=== PATIENT | male | born 1935 | race African-American/Black ===

== ENCOUNTER 2018-03-02 11:51 | Inpatient (IN) | payer MEDICARE ==
[2018-03-02 12:39] LABS: #Lymphocytes 0.7 thou/uL (1.20-3.40); #Monocytes 0.4 thou/uL (0.11-0.59); #Neutrophils 5.4 thou/uL (1.40-6.50); %Basophils 0.2 % (0.0-1.0); %Eosinophils 0.1 % (0.0-10.0); %Lymphocytes 10.3 % (21.0-51.0); %Monocytes 6.2 % (0.0-10.0); %Neutrophils 83.3 % (42.0-75.0); Hemoglobin 10.8 g/dL (14.0-18.0); Mean Corpuscular HGB CONC 32.8 g/dL (32.0-36.0); Mean Corpuscular Hemoglobin 31.1 pg (27.0-31.0); Mean Corpuscular Volume 94.6 fL (78.0-98.0); Platelet Count 333 thou/uL (130-400); RBC Distribution Width 12.2 % (11.5-14.5); Red Blood Cell (RBC) Count 3.49 mill/uL (4.70-6.10); White Blood Cell (WBC) Count 6.5 thou/uL (4.8-10.8)
[2018-03-02 13:03] LABS: ALT (SGPT) 22 U/L (8-55); AST (SGOT) 33 U/L (5-34); Alkaline Phosphatase 151 U/L (40-150); Anion Gap 16 mmol/L (10-20); BUN (Urea Nitrogen) 25 mg/dL (8.4-25.7); Bilirubin, Total 2.2 mg/dL (0.2-1.2); Calc. Creatinine Clearance 0 mL/min (70-130); Calcium 9.6 mg/dL (7.8-10.44); Carbon Dioxide 24 mmol/L (23-31); Chloride 96 mmol/L (98-107); Estimated GFR-MDRD 61; Globulin 4.2 g/dL (2.4-3.5); Glucose 113 mg/dL (83-110); Potassium 3.3 mmol/L (3.5-5.1); Protein, Total 8.2 g/dL (5.8-8.1); Sodium 133 mmol/L (136-145)
[2018-03-02 13:04] LABS: CKMB 1.3 ng/mL (0-6.6); Troponin I 0.018 ng/mL (< 0.028)
--- NOTE | 2018-03-02 15:00 | CT ---
HEAD CT WITHOUT CONTRAST: Date: 03/02/18 COMPARISON: None. HISTORY: Trauma, pain. TECHNIQUE: Serial axial CT imaging at 5 mm intervals from vertex through skull base without contrast. FINDINGS: The visualized paranasal sinuses and mastoid air cells are well aerated. A nonspecific small lytic lesion is noted in the right frontal calvarium measuring 1.0 cm on image 17 . There is moderate diffuse cerebral volume loss. There is periventricular hypodensity suggesting sma ll vessel disease. No intracranial hemorrhage, midline shift, or mass effect. IMPRESSION: Small vessel disease and cerebral volume loss with no intracranial hemorrhage or displaced calvarial fracture. Incidentally noted lytic lesion within the frontal calvarium on the right. Benign hemangiom a is favored. This could be best assessed via follow-up bone scan as clinically warranted. JEFF Greene. POS: LENI
--- NOTE | 2018-03-02 15:01 | CT ---
CT OF THE CERVICAL SPINE WITHOUT CONTRAST: COMPARISON: None. HISTORY: Weakness. Fall this morning with head trauma and neck pain. TECHNIQUE: Multiple contiguous axial images were obtained in a CT of the cervical spine without contrast. Sagit jojo and coronal reformats were performed. FINDINGS: There are severe degenerative changes in the cervical spine. The vertebral bodies demonstrate normal height and alignment without acute fracture or subluxation. No prevertebral soft tissue swelling is seen. The posterior facets are well aligned. Normal alignment of the skull base with the cervical spine is seen. IMPRESSION: Degenerative changes of the cervical spine without acute osseous abnormality. POS: LENI
[2018-03-02 15:32] LABS: Bilirubin Moderate (Negative); Blood, Urine Negative (Negative); Clarity TURBID (Clear); Glucose, Urine (Dipstick) Negative (Negative); Leukocyte Large (Negative); Protein, Urine (Dipstick) 30 mg/dL (Neg-Trace); Specific Gravity, Urine 1.023 (1.002-1.036)
[2018-03-02 15:35] LABS: RBC/HPF 0-3 HPF (0-3); Squamous Epithelial 0-3 HPF (0-3)
[2018-03-02 15:36] LABS: Yeast-AUWi Flag 82.4 (0-25.0)
[2018-03-02 15:49] LABS: Nitrite Unable to Interpret (Negative)
[2018-03-02 15:50] LABS: Bacteria/HPF Rare-Few HPF (None Seen); Hyaline Casts/LPF NONE SEEN LPF (0-3 Hyaline); Other Casts/LPF None Seen LPF (0-3 Hyaline)
[2018-03-02 15:51] LABS: Trichomonas/HPF 1+ HPF (None Seen); Yeast-All Forms None Seen HPF (None Seen)
[2018-03-02] MEDS ORDERED: cefTRIAXone\\ROCEPHIN 2 GM in Sodium Chloride 0.9% 100 ML IVPB SCH (17:30)
[2018-03-02] MEDS ORDERED: Ondansetron ODT 4 MG TAB SL PRN (22:16)
[2018-03-02] MEDS ORDERED: Acetaminophen 325 MG TAB PO PRN (22:16)
[2018-03-02] MEDS ORDERED: Ondansetron HCl/PF 4 MG/2 ML Vial IVP PRN (22:16)
[2018-03-02 22:18] VITALS: BMI 24.9
--- NOTE | 2018-03-03 08:48 | PDOC.EVN ---
Event Note - Event Note Event Note: Patient was admitted yesterday afternoon/evening to Hospitalist team for fall in home. ER report says admission was for UTI w/ secondary diagnosis of unable to walk. [facility] residents paged at 08:25 today once it was found that patient was [facility] patient. Patient received rocephin in ER and given regular diet.
--- NOTE | 2018-03-03 13:04 | PDOC.FPRHP ---
- History of Present Illness Chief Complaint: weakness History of Present Illness: 82 yo M with PMH of moderate dementia, HTN, BPH, cardiac arrhythmia who presents for CC being weak and unable to walk. Granddaughter came to his house where he lives alone, and he was unable to answer the door. EMS brought him to the ED where he was found to have a UTI and was given 2 g rocephin and a bolus 500 cc NS. ROS + for decreased appetite. Pt denies any others symptoms besides weakness and incontinence, for which he wears depends. Denies CP or SOB. Per clinic chart review showed wt loss of 10 kg in last 7 months. ED Course: Found to have UTI, 2 g rocephin and 500 cc NS bolus. - Allergies/Adverse Reactions Allergies Allergy/AdvReac Type Severity Reaction Status Date / Time lisinopril Allergy Swollen Verified 09/14/13 11:03 Lips No Known Drug Allergies Allergy Verified 09/13/13 21:09 - Home Medications Medication Instructions Recorded Confirmed Type Metoprolol Tartrate [Lopressor] 25 mg PO DAILY 09/13/13 03/02/18 History Tamsulosin HCl [Flomax] 0.4 mg PO DAILY 09/13/13 03/02/18 History Amlodipine [Norvasc] 10 mg PO DAILY 03/02/18 03/02/18 History Aspirin [Aspirin Chewable] 81 mg PO DAILY 03/02/18 03/02/18 History Atorvastatin Calcium [Atorvastatin 1 tab PO DAILY 03/02/18 03/02/18 History Calcium] Hydrochlorothiazide 25 mg PO DAILY 03/02/18 03/02/18 History [Hydrochlorothiazide] Memantine HCl [Memantine HCl] 10 mg PO BID 03/02/18 03/02/18 History - History PMHx: Moderate Dementia, likely vascular. MMSE 06/14 in Aug 2017 (decreased from 14 in 2017). Cardiac Arrhythmia, with potential for pacemaker in May, but there was no follow up; BPH, HTN, Nicotine dependence, TIA PSHx: Rt Inguinal Hernia repair, cataract removal FHx: Sister with bypass surgery; mother with colon cancer at 83 yrs old, DM in all of family Social: current tobacco roller, smoked in the past (unknown pack years), doesn' t drink alcohol, doesn't do drugs - Review of Systems General: reports: weight/appetite/sleep changes (decreased appetite), fatigue. denies: fever/chills ENT: denies: nasal congestion Respiratory: denies: cough, congestion, shortness of breath Cardiovascular: denies: chest pain, palpitation Gastrointestinal: denies: nausea, vomiting, diarrhea, constipation, abdominal pain Genitourinary: reports: incontinence. denies: dysuria Musculoskeletal: denies: pain Neurological: reports: weakness Psychological: denies: anxiety, depression - Vital signs BP: [129/79] HR: [78] RR: [16] Tmax: [98.6] Pox: [94]% on [RA] Wt: [76] - Physical Exam Constitutional: NAD, awake, alert and oriented HEENT: normocephalic and atraumatic, PERRLA, EOMI, no scleral icterus, other ( Poor dentition, + mod hearing loss) Neck: supple, no LAD Chest: no lesions Heart: RRR, normal S1/S2, no murmurs/rubs/gallops, pulses present, no edema Lungs: CTAB, no respiratory distress, no wheezing, no retractions Abdomen: soft, non-tender, bowel sounds present, no masses/distention Musculoskeletal: normal structure, normal tone Neurological: CN II-XII intact Skin: good turgor, capillary refill <2 seconds, no jaundice Heme/Lymphatic: no purpura, no petechia Psychiatric: normal mood and affect FMR H&P: Results - Labs Result Diagrams: 03/04/18 04:28 03/04/18 04:28 Lab results: WBC 6.5 thou/uL (4.8-10.8) 03/02/18 12:33 Hgb 10.8 g/dL (14.0-18.0) L 03/02/18 12:33 Hct 33.0 % (42.0-52.0) L 03/02/18 12:33 MCV 94.6 fL (78.0-98.0) 03/02/18 12:33 Plt Count 333 thou/uL (130-400) 03/02/18 12:33 Neutrophils % 83.3 % (42.0-75.0) H 03/02/18 12:33 Sodium 133 mmol/L (136-145) L 03/02/18 12:33 Potassium 3.3 mmol/L (3.5-5.1) L 03/02/18 12:33 Chloride 96 mmol/L (98-107) L 03/02/18 12:33 Carbon Dioxide 24 mmol/L (23-31) 03/02/18 12:33 BUN 25 mg/dL (8.4-25.7) 03/02/18 12:33 Creatinine 1.35 mg/dL (0.6-1.3) H 03/02/18 12:33 Glucose 113 mg/dL (83-110) H 03/02/18 12:33 Calcium 9.6 mg/dL (7.8-10.44) 03/02/18 12:33 Total Bilirubin 2.2 mg/dL (0.2-1.2) H 03/02/18 12:33 AST 33 U/L (5-34) 03/02/18 12:33 ALT 22 U/L (8-55) 03/02/18 12:33 Alkaline Phosphatase 151 U/L (40-150) H 03/02/18 12:33 CK-MB (CK-2) 1.3 ng/mL (0-6.6) 03/02/18 12:33 Serum Total Protein 8.2 g/dL (5.8-8.1) H 03/02/18 12:33 Albumin 4.0 g/dL (3.4-4.8) 03/02/18 12:33 Urine Ketones Trace mg/dL (Negative) H 03/02/18 14:45 Urine Blood Negative (Negative) 03/02/18 14:45 Urine Nitrite Unable to Interpret (Negative) 03/02/18 14:45 Ur Leukocyte Esterase Large (Negative) H 03/02/18 14:45 Urine RBC 0-3 HPF (0-3) 03/02/18 14:45 Urine WBC Greater Than 50-TNTC HPF (0-3) H 03/02/18 14:45 Ur Squamous Epith Cells 0-3 HPF (0-3) 03/02/18 14:45 Urine Bacteria Rare-Few HPF (None Seen) 03/02/18 14:45 FMR H&P: A/P - Problem List (1) Physical deconditioning Current Visit: Yes Status: Acute Code(s): R53.81 - OTHER MALAISE (2) Complicated UTI (urinary tract infection) Current Visit: Yes Status: Acute Code(s): N39.0 - URINARY TRACT INFECTION, SITE NOT SPECIFIED (3) BPH (benign prostatic hyperplasia) Current Visit: Yes Status: Chronic Code(s): N40.0 - BENIGN PROSTATIC HYPERPLASIA WITHOUT LOWER URINRY TRACT SYMP (4) Vascular dementia Current Visit: Yes Status: Chronic Code(s): F01.50 - VASCULAR DEMENTIA WITHOUT BEHAVIORAL DISTURBANCE (5) Nicotine dependence Current Visit: Yes Status: Chronic Code(s): F17.200 - NICOTINE DEPENDENCE, UNSPECIFIED, UNCOMPLICATED (6) History of cardiac arrhythmia Current Visit: No Status: Chronic Code(s): Z86.79 - PERSONAL HISTORY OF OTHER DISEASES OF THE CIRCULATORY SYSTEM (7) HTN (hypertension) Current Visit: Yes Status: Chronic Code(s): I10 - ESSENTIAL (PRIMARY) HYPERTENSION (8) HLD (hyperlipidemia) Current Visit: Yes Status: Chronic Code(s): E78.5 - HYPERLIPIDEMIA, UNSPECIFIED - Plan Complicated UTI -UA showed UTI and trichomonas. Pt Received 2 g Rocephin and 500 cc NS in ED. -Blood and cultures pending. Both collected after first dose of antibiotics, so may give false negative result. -Patients vitals have been stable on admission: no tachypnea, no fever, no tachycardia, WBC wnl (left shift but no bands), so does not meet Sepsis criteria at this time. -Pending lactic acid -AM CBC and BMP Deconditioning, likely 2/2 to UTI -Prior to this time patient was able to ambulate on his own and perform own ADLs (with nursing visits once daily), without even a walker. This acute change is likely 2/2 to the UTI -PT consult -OT consult -Case management consulted for placement, likely rehab Possible Fall -CT Head was negative -CT c-spine: no displaced calvarial fracture or intracranial hemorrhage Normocytic Anemia -Hgb 10.8 Moderate Dementia, likely vascular -06/14 on MMSE in August. HTN -restart home HCTZ, amlodipine, and metoprolol Suspected MANUEL -Cr 1.35, previous baseline ~1.05 -Calculate FeNa with tomorrow AM labs Urine Na and Cr along with BMP -Urine protein high at 30 BPH -continue tamsulosin Cardiac arrhythmia, hx of needing a pacemaker -stable currently -CKMB and Trop negative Nicotine dependence -Currently every day nicotine user (dip). Past hx of smoking, unknown pack years. -Offer nicotine patches and nicotine cessation education Hyperbilirubinemia -2.2 today -uncertain of cause at this time Hypokalemia -K of 3.3, ordered 1x dose of 40 meq K and will repeat BMP in AM Hyponatremia -Na 133 -Ordered Morning Urine osm and serum osm to qualify type of hyponatremia Trichomaniasis -UA showed trich; treated with flagyl Code status: Full Code MPOA: sister, Lachelle López FMR H&P: Upper Level - Pertinent history 82M with a PMH of vascular dementia, HTN, and BPH who presents to ER after likely a fall at home. Patient unable to answer door when family came to visit yesterday. EMS called and patient transported to ER as he was unable to walk. Normally, patient lives at home by himself and is able to perform ADLs without assistance. Last seen in OP clinic in August and was at his baseline at that time. Patient is pleasantly demented and has no complaints during time of this examination. He is accompanied by sister who denies patient having any complaints. Patient and sister deny any FND, numbness/tingling, headaches, changes in vision, palpitations, dysuria. ED: 2G rocephin, 500cc NS bolus - Pertinent findings Vitals: 129/79 mmHg 78 bpm 16 breaths/m 94% on RA 98.6F Gen: A&O x 2 HEENT: NC/AT; MMM CV: RRR, no murmurs Pulm: CTA-B Abd: normal bowel sounds; non TTP; no distention Extremities: no cyanosis; strength 5/5 all four extremities Psych: affect congruent with stated mood Na: 133 K: 3.3 UA: + for trichomoniasis and UTI H.8 MCV: 94.6 Total bili: 2.2 trop: .018 - Plan Date/Time: 03/03/18 1259 1. Complicated UTI: UA positive for UTI s/p 2G of Rocephin in ED. We will continue treatment with Rocephin 1G daily until cultures result. Patient does not meet SIRS criteria on admission. We will add lactic acid to ED labs. 2. Trichomaniasis: UA positive for trichomoniasis. Will treat with one time dose of 2G of flagyl. Trich in males associated with other urologic infections including prostatitis, no s/s of other infections at this time. 3. Deconditioning/Weakness: acute change in functional status. He is unable to ambulate since calling EMS. No signs of neurologic insult. No FND's or change in mental status. Will consult PT/OT for evaluation and recommendations. We anticipate at least a short term rehabilitation stay. 4. Suspected MANUEL: baseline Cr of 1.0, bumped to 1.35 on admission. FENa pending. LR at 125cc/hr. Monitor I/O's 5. Hyperbilirubinemia: elevated total bilirubin at 2.2. Normal AST/ALT/Alk Phos. Will get direct and indirect bili. If still elevated upon recheck, will need RUQ US. No RUQ abdominal pain or n/v at this time. 6. Hypokalemia: replete with 40mEq of KCl one time. Follow with AM labs 7. Hyponatremia: serum osms and urine studies pending. Asymptomatic at this time. 8. Normocytic Anemia: Hg of 10.8 with MCV of 94.6. This Hg is unchanged from 2014, per review of records. Denies CP, SOB, PIMENTEL. 9. Dementia, likely vascular: MMSE done in August was 06/14 showing a worsening in cognition. No gross behavioral changes. Being managed by outpatient primary care provider. Namenda dose was recently increased, will continue during this hospitalization. 10. HTN: Continue HCTZ, amlodipine, metoprolol. BP at goal at this time. 11. BPH: continue home dose of tamsulosin. No s/s of urinary retention at this time I, Dudley Duran, have evaluated this patient and agree with findings/plan as outlined by internet site designer resident. Pertinent changes/additions are listed here. Attending Addendum - Attending Addendum Date/Time: 03/04/18 3397 I personally evaluated the patient and discussed the management with Dr. Elmo Butelr on 03/03/18. I agree with the History, Examination, Assessment and Plan documented above with any addition or exceptions noted below- 82M with a PMH of vascular dementia , HTN, and BPH who presents to ER after likely a fall at home. Patient unable to answer door when family came to visit yesterday. EMS called and patient transported to ER as he was unable to walk. Normally, patient lives at home by himself and is able to perform ADLs without assistance. Last seen in OP clinic in August and was at his baseline at that time. Patient denies any complaints at this time and is asking about going home. Denies any abdominal pain, N/V. PMH /PSH/Meds/All reviewed and agree with resident's documentation. Afebrile VSS. Exam repeated by me and agree with resident's findings. A/p: 1) UTI - Continue rocephin; await urine culture. Given 1 dose of flagyl for trich. 2) Weakness/ deconditioning- PT evaluation.
[2018-03-03] MEDS ORDERED: Calcium Carbonate 500 MG ChewTAB PO PRN (13:49)
[2018-03-03] MEDS ORDERED: metroNIDAZOLE 500 MG TAB PO SCH (14:00)
[2018-03-03] MEDS ORDERED: Potassium Chloride 20 MEQ TAB PO SCH (14:15)
[2018-03-03] MEDS: Lactated Ringer's 1,000 ML IV SCH (15:39)
[2018-03-03] MEDS: Nicotine 14 MG PATCH TD SCH (15:40)
[2018-03-03] MEDS: cefTRIAXone\\ROCEPHIN 1 GM in Sodium Chloride 0.9% 100 ML IVPB SCH (15:52)
[2018-03-03 16:58] LABS: Lactic Acid 2.2 mmol/L (0.5-2.2)
[2018-03-04] MEDS: Lactated Ringer's 1,000 ML IV SCH ×4 (01:14→20:26)
--- NOTE | 2018-03-04 05:23 | PDOC.FM ---
- Subjective Subjective: Pt did well overnight. Eating and drinking well. Refused cath, unable to collect urine for urine studies as of yet because of pt's incontinence. Ambulated with nursing assistance last night, pt was able to balance well and stand on his own for quite some time. - Objective Vital Signs & Weight: Vital Signs (12 hours) Temp Pulse Resp BP Pulse Ox 03/03/18 20:00 98.9 F 75 18 121/74 94 L Weight Weight 76.657 kg I&O: 03/02/18 03/03/18 03/04/18 06:59 06:59 06:59 Intake Total 360 1875 Balance 360 1875 Result Diagrams: 03/04/18 04:28 03/04/18 04:28 <Kala Butler - Last Filed: 03/04/18 08:21> - Objective Vital Signs & Weight: Vital Signs (12 hours) Temp Pulse Resp BP Pulse Ox 03/04/18 07:34 98.0 F 69 18 161/79 H 98 03/04/18 07:21 98.9 F 75 18 Weight Weight 76.657 kg I&O: 03/03/18 03/04/18 03/05/18 06:59 06:59 06:59 Intake Total 360 1875 Output Total 245 Balance 360 1875 -245 Result Diagrams: 03/04/18 04:28 03/04/18 04:28 <Rona Ward - Last Filed: 03/04/18 13:16> Phys Exam - Physical Examination Constitutional: NAD HEENT: moist MMs Neck: no nodes Respiratory: no wheezing, clear to auscultation bilateral Cardiovascular: RRR, no significant murmur Gastrointestinal: soft, non-tender, no distention Musculoskeletal: no edema, pulses present Neurological: moves all 4 limbs Psychiatric: normal affect Skin: normal turgor, cap refill <2 seconds <Kala Butler - Last Filed: 03/04/18 08:21> Dx/Plan (1) Physical deconditioning Code(s): R53.81 - OTHER MALAISE Status: Acute (2) Complicated UTI (urinary tract infection) Code(s): N39.0 - URINARY TRACT INFECTION, SITE NOT SPECIFIED Status: Acute (3) BPH (benign prostatic hyperplasia) Code(s): N40.0 - BENIGN PROSTATIC HYPERPLASIA WITHOUT LOWER URINRY TRACT SYMP Status: Chronic (4) Vascular dementia Code(s): F01.50 - VASCULAR DEMENTIA WITHOUT BEHAVIORAL DISTURBANCE Status: Chronic (5) Nicotine dependence Code(s): F17.200 - NICOTINE DEPENDENCE, UNSPECIFIED, UNCOMPLICATED Status: Chronic (6) History of cardiac arrhythmia Code(s): Z86.79 - PERSONAL HISTORY OF OTHER DISEASES OF THE CIRCULATORY SYSTEM Status: Chronic (7) HTN (hypertension) Code(s): I10 - ESSENTIAL (PRIMARY) HYPERTENSION Status: Chronic (8) HLD (hyperlipidemia) Code(s): E78.5 - HYPERLIPIDEMIA, UNSPECIFIED Status: Chronic - Plan Plan: 1. Complicated UTI: UA positive for UTI s/p 2G of Rocephin in ED. We will continue treatment with Rocephin 1G daily until cultures result. Patient does not meet SIRS criteria on admission. LA 2.2 which is reassuring. Blood and urine cx pending. 2. Trichomaniasis: UA positive for trichomoniasis. Will treat with one time dose of 2G of flagyl. Trich in males associated with other urologic infections including prostatitis, no s/s of other infections at this time. Added GC/Chlam, RPR, and HIV testing today. 3. Deconditioning/Weakness: acute change in functional status. He is unable to ambulate since calling EMS. No signs of neurologic insult. No FND's or change in mental status. Will consult PT/OT for evaluation and recommendations. We anticipate at least a short term rehabilitation stay. Improved today: Was able to stand on his own last night for quite some time last night. 4. Suspected MANUEL: baseline Cr of 1.0, bumped to 1.35 on admission. FENa pending. LR at 125cc/hr. Monitor I/O's. GFR improved 03/04 to >90, BUN/Cr improved to 20/.84. 5. Hyperbilirubinemia: elevated total bilirubin at 2.2. Normal AST/ALT/Alk Phos. Will get direct and indirect bili. If still elevated upon recheck, will need RUQ US. No RUQ abdominal pain or n/v at this time. TBili improved drastically to 1.4, will continue to monitor. 6. Hypokalemia: repleted 03/03 with 40mEq of KCl one time. Today 03/04 KCl shows no improvement. Repeat 40 mEq today and add Mag, repeate BMP. 7. Hyponatremia: serum osms and urine studies pending. Asymptomatic at this time. Unable to catch urine on him this morning and pt refused straight cath, still pending urine studies. 8. Normocytic Anemia: Hg of 10.8 with MCV of 94.6. This Hg is unchanged from 2014, per review of records. Denies CP, SOB, PIMENTEL. 9. Dementia, likely vascular: MMSE done in August was 06/14 showing a worsening in cognition. No gross behavioral changes. Being managed by outpatient primary care provider. Namenda dose was recently increased, will continue during this hospitalization. 10. HTN: Continue HCTZ, amlodipine, metoprolol. BP 161/79 this morning. Will continue to monitor and adjust as needed. 11. BPH: continue home dose of tamsulosin. No s/s of urinary retention at this time 12. Hx Cardiac arrhythmia. EKG 03/02 showed RBBB, sinus rhythm. <Kala Butler - Last Filed: 03/04/18 08:21> (1) Physical deconditioning Code(s): R53.81 - OTHER MALAISE Status: Acute (2) Complicated UTI (urinary tract infection) Code(s): N39.0 - URINARY TRACT INFECTION, SITE NOT SPECIFIED Status: Acute (3) BPH (benign prostatic hyperplasia) Code(s): N40.0 - BENIGN PROSTATIC HYPERPLASIA WITHOUT LOWER URINRY TRACT SYMP Status: Chronic (4) Vascular dementia Code(s): F01.50 - VASCULAR DEMENTIA WITHOUT BEHAVIORAL DISTURBANCE Status: Chronic (5) Nicotine dependence Code(s): F17.200 - NICOTINE DEPENDENCE, UNSPECIFIED, UNCOMPLICATED Status: Chronic (6) History of cardiac arrhythmia Code(s): Z86.79 - PERSONAL HISTORY OF OTHER DISEASES OF THE CIRCULATORY SYSTEM Status: Chronic (7) HTN (hypertension) Code(s): I10 - ESSENTIAL (PRIMARY) HYPERTENSION Status: Chronic (8) HLD (hyperlipidemia) Code(s): E78.5 - HYPERLIPIDEMIA, UNSPECIFIED Status: Chronic <Rona Ward - Last Filed: 03/04/18 13:16> Attending Addendum - Attending Addendum Date/Time: 03/04/18 1313 I personally evaluated the patient and discussed the management with Dr. Coppola I agree with the History, Examination, Assessment and Plan documented above with any addition or exceptions noted below- Patient denies any complaints. Ambulated with nursing yesterday. Afebrile VSS. A/P: 1) UTI- continue rocephin; awaiting culture. 2) Deconditioning - appears better; awaiting rehab screen. 3) Dementia- stable; continue home meds. <Rona Ward - Last Filed: 03/04/18 13:16>
[2018-03-04 05:29] LABS: #Basophils 0.1 thou/uL (0.0-0.2); #Lymphocytes 0.9 thou/uL (1.20-3.40); #Monocytes 0.5 thou/uL (0.11-0.59); %Basophils 1.2 % (0.0-1.0); %Eosinophils 0.7 % (0.0-10.0); %Lymphocytes 14.2 % (21.0-51.0); %Monocytes 7.9 % (0.0-10.0); Hemoglobin 10.5 g/dL (14.0-18.0); Mean Corpuscular HGB CONC 34.5 g/dL (32.0-36.0); Mean Corpuscular Hemoglobin 32.6 pg (27.0-31.0); Mean Corpuscular Volume 94.5 fL (78.0-98.0); Mean Platelet Volume 5.9 fL (7.4-10.4); Platelet Count 308 thou/uL (130-400); RBC Distribution Width 12.3 % (11.5-14.5); Red Blood Cell (RBC) Count 3.21 mill/uL (4.70-6.10); White Blood Cell (WBC) Count 6.5 thou/uL (4.8-10.8)
[2018-03-04 05:51] LABS: Anion Gap 12 mmol/L (10-20); BUN (Urea Nitrogen) 20 mg/dL (8.4-25.7); Calc. Creatinine Clearance 71 mL/min (70-130); Calcium 8.9 mg/dL (7.8-10.44); Carbon Dioxide 24 mmol/L (23-31); Chloride 101 mmol/L (98-107); Estimated GFR-MDRD Greater than 90; Glucose 88 mg/dL (83-110); Potassium 3.3 mmol/L (3.5-5.1); Sodium 134 mmol/L (136-145)
[2018-03-04] MEDS ORDERED: Potassium Chloride 20 MEQ TAB PO SCH (07:15)
[2018-03-04 07:26] LABS: Bilirubin, Direct 0.8 mg/dL (0.1-0.3); Bilirubin, Total 1.4 mg/dL (0.2-1.2)
[2018-03-04] MEDS: Metoprolol Tartrate 25 MG TAB PO SCH (08:37)
[2018-03-04] MEDS: Tamsulosin HCl 0.4 MG CAP PO SCH (08:40)
[2018-03-04] MEDS: Hydrochlorothiazide 25 MG TAB PO SCH (08:40)
[2018-03-04] MEDS: Amlodipine 10 MG TAB PO SCH (08:41)
[2018-03-04] MEDS: Atorvastatin Calcium 40 MG TAB PO SCH (08:41)
[2018-03-04 09:39] LABS: HIV (1/2) Antibody/Antigen Non-Reactive (NonReactive); HIV 1/2 INDEX 0.12 S/CO (<1.00)
[2018-03-04 11:27] LABS: Osmolality, Urine 681 mOsm/kg (300-900)
[2018-03-04 11:30] LABS: Sodium, Urine 112 mmol/L (Not Available)
[2018-03-04] MEDS: cefTRIAXone\\ROCEPHIN 1 GM in Sodium Chloride 0.9% 100 ML IVPB SCH (14:43)
[2018-03-04] MEDS: Nicotine 14 MG PATCH TD SCH (14:44)
[2018-03-04 14:47] LABS: Syphilis Antibody Nonreactive (Nonreactive); Syphilis Antibody Index 0.07 S/CO (<1.00 Non-Reactive)
[2018-03-05 02:07] LABS: Chlamydia by PCR Not Detected (NotDetected); GC by PCR Not Detected (NotDetected)
[2018-03-05] MEDS: Lactated Ringer's 1,000 ML IV SCH ×4 (02:52→18:42)
[2018-03-05 05:30] LABS: #Eosinphils 0.1 thou/uL (0.0-0.7); #Monocytes 0.4 thou/uL (0.11-0.59); #Neutrophils 4.6 thou/uL (1.40-6.50); %Basophils 0.3 % (0.0-1.0); %Eosinophils 0.9 % (0.0-10.0); %Lymphocytes 16.3 % (21.0-51.0); %Monocytes 6.1 % (0.0-10.0); %Neutrophils 76.4 % (42.0-75.0); Hemoglobin 9.5 g/dL (14.0-18.0); Mean Corpuscular HGB CONC 33.8 g/dL (32.0-36.0); Mean Corpuscular Hemoglobin 31.6 pg (27.0-31.0); Mean Corpuscular Volume 93.5 fL (78.0-98.0); Mean Platelet Volume 5.8 fL (7.4-10.4); Platelet Count 268 thou/uL (130-400); RBC Distribution Width 12.3 % (11.5-14.5)
[2018-03-05 05:52] LABS: Anion Gap 9 mmol/L (10-20); BUN (Urea Nitrogen) 19 mg/dL (8.4-25.7); Calc. Creatinine Clearance 86 mL/min (70-130); Calcium 8.4 mg/dL (7.8-10.44); Carbon Dioxide 24 mmol/L (23-31); Chloride 101 mmol/L (98-107); Estimated GFR-MDRD Greater than 90; Glucose 107 mg/dL (83-110); Potassium 3.3 mmol/L (3.5-5.1); Sodium 131 mmol/L (136-145)
--- NOTE | 2018-03-05 06:05 | PDOC.FM ---
- Subjective Subjective: 82 yo M, did well overnight. No complaints. VSS. - Objective Vital Signs & Weight: Vital Signs (12 hours) Temp Pulse Resp BP Pulse Ox 03/04/18 20:00 98.9 F 88 18 99 03/04/18 19:36 98.9 F 88 18 106/65 99 Weight Weight 76.657 kg I&O: 03/03/18 03/04/18 03/05/18 06:59 06:59 06:59 Intake Total 360 1875 4740 Output Total 446 Balance 360 1875 4294 Result Diagrams: 03/05/18 04:06 03/05/18 04:06 <CarrieKala - Last Filed: 03/05/18 09:04> - Objective Vital Signs & Weight: Vital Signs (12 hours) Pulse BP 03/05/18 10:09 71 151/78 H Weight Weight 76.657 kg I&O: 03/04/18 03/05/18 03/06/18 06:59 06:59 06:59 Intake Total 1875 4740 2100 Output Total 446 Balance 1875 4294 2100 Result Diagrams: 03/05/18 04:06 03/05/18 04:06 <Rona Ward - Last Filed: 03/05/18 22:05> Phys Exam - Physical Examination Constitutional: NAD Respiratory: no wheezing, no rales, no rhonchi, clear to auscultation bilateral Cardiovascular: RRR, no significant murmur, no rub Gastrointestinal: soft, non-tender, no distention Musculoskeletal: no edema, pulses present Psychiatric: normal affect <Kala Butler - Last Filed: 03/05/18 09:04> Dx/Plan (1) Physical deconditioning Code(s): R53.81 - OTHER MALAISE Status: Acute (2) Complicated UTI (urinary tract infection) Code(s): N39.0 - URINARY TRACT INFECTION, SITE NOT SPECIFIED Status: Acute (3) BPH (benign prostatic hyperplasia) Code(s): N40.0 - BENIGN PROSTATIC HYPERPLASIA WITHOUT LOWER URINRY TRACT SYMP Status: Chronic (4) Vascular dementia Code(s): F01.50 - VASCULAR DEMENTIA WITHOUT BEHAVIORAL DISTURBANCE Status: Chronic (5) Nicotine dependence Code(s): F17.200 - NICOTINE DEPENDENCE, UNSPECIFIED, UNCOMPLICATED Status: Chronic (6) History of cardiac arrhythmia Code(s): Z86.79 - PERSONAL HISTORY OF OTHER DISEASES OF THE CIRCULATORY SYSTEM Status: Chronic (7) HTN (hypertension) Code(s): I10 - ESSENTIAL (PRIMARY) HYPERTENSION Status: Chronic (8) HLD (hyperlipidemia) Code(s): E78.5 - HYPERLIPIDEMIA, UNSPECIFIED Status: Chronic - Plan Plan: Plan: 1. Complicated UTI: UA positive for UTI s/p 2G of Rocephin in ED. We will continue treatment with Rocephin 1G daily until cultures result. Patient does not meet SIRS criteria on admission. LA 2.2 which is reassuring. Blood (NGTD) and urine cx pending. 2. Trichomaniasis: UA positive for trichomoniasis. Will treat with one time dose of 2G of flagyl. Trich in males associated with other urologic infections including prostatitis, no s/s of other infections at this time. GC/Chlam, RPR, and HIV all negative. 3. Deconditioning/Weakness: acute change in functional status. He is unable to ambulate since calling EMS. No signs of neurologic insult. No FND's or change in mental status. Will consult PT/OT for evaluation and recommendations. We anticipate at least a short term rehabilitation stay. Improved. Was able to stand on his own. [facility] referral for rehab. 4. Suspected MANUEL, resolved: baseline Cr of 1.0, bumped to 1.35 on admission. FENa 0.7%, prerenal etiology. LR at 125cc/hr. Monitor I/O's. GFR improved 03/04 to >90, BUN/Cr improved to 19/.69 and stable today. 5. Hyperbilirubinemia, resolved: elevated total bilirubin at 2.2. Normal AST/ALT /Alk Phos. Will get direct and indirect bili. If still elevated upon recheck, will need RUQ US. No RUQ abdominal pain or n/v at this time. TBili improved. 6. Hypokalemia: repleted 03/03 with 40mEq of KCl one time. Mag wnl. K: 3.3 today. Will receive 40 mEq today 03/05. 7. Hyponatremia: Worsened today to 131. Asymptomatic at this time. 8. Normocytic Anemia: Hg 9.5. This Hg is unchanged from 2014, per review of records. Denies CP, SOB, PIMENTEL. 9. Dementia, likely vascular: MMSE done in August was 06/14 showing a worsening in cognition. No gross behavioral changes. Being managed by outpatient primary care provider. Namenda dose was recently increased, will continue during this hospitalization. 10. HTN: Continue HCTZ, amlodipine, metoprolol. Will continue to monitor and adjust as needed. 11. BPH: continue home dose of tamsulosin. No s/s of urinary retention at this time 12. Hx Cardiac arrhythmia. EKG 03/02 showed RBBB, sinus rhythm. Code status: Full code <Kala Butler - Last Filed: 03/05/18 09:04> (1) Physical deconditioning Code(s): R53.81 - OTHER MALAISE Status: Acute (2) Complicated UTI (urinary tract infection) Code(s): N39.0 - URINARY TRACT INFECTION, SITE NOT SPECIFIED Status: Acute (3) BPH (benign prostatic hyperplasia) Code(s): N40.0 - BENIGN PROSTATIC HYPERPLASIA WITHOUT LOWER URINRY TRACT SYMP Status: Chronic (4) Vascular dementia Code(s): F01.50 - VASCULAR DEMENTIA WITHOUT BEHAVIORAL DISTURBANCE Status: Chronic (5) Nicotine dependence Code(s): F17.200 - NICOTINE DEPENDENCE, UNSPECIFIED, UNCOMPLICATED Status: Chronic (6) History of cardiac arrhythmia Code(s): Z86.79 - PERSONAL HISTORY OF OTHER DISEASES OF THE CIRCULATORY SYSTEM Status: Chronic (7) HTN (hypertension) Code(s): I10 - ESSENTIAL (PRIMARY) HYPERTENSION Status: Chronic (8) HLD (hyperlipidemia) Code(s): E78.5 - HYPERLIPIDEMIA, UNSPECIFIED Status: Chronic <Rona Ward - Last Filed: 03/05/18 22:05> Attending Addendum - Attending Addendum Date/Time: 03/05/18 5703 I personally evaluated the patient and discussed the management with Dr. Elmo Butler I agree with the History, Examination, Assessment and Plan documented above with any addition or exceptions noted below- Patient sitting up in chair. More alert. Afebrile VSS. A/P: 1) UTI- improved; continue abx. Ready for discharge awaiting approval for rehab. 2) Anemia- stable. 3) Hypokalemia- continue replacement. <Rona Ward - Last Filed: 03/05/18 22:05>
[2018-03-05] MEDS ORDERED: Potassium Chloride 20 MEQ TAB PO SCH (09:15)
[2018-03-05] MEDS: Amlodipine 10 MG TAB PO SCH (10:09)
[2018-03-05] MEDS: Metoprolol Tartrate 25 MG TAB PO SCH (10:10)
[2018-03-05] MEDS: Hydrochlorothiazide 25 MG TAB PO SCH (10:10)
[2018-03-05] MEDS: Atorvastatin Calcium 40 MG TAB PO SCH (10:10)
[2018-03-05] MEDS: Tamsulosin HCl 0.4 MG CAP PO SCH (10:10)
[2018-03-05] MEDS: Nicotine 14 MG PATCH TD SCH (14:15)
[2018-03-05] MEDS: cefTRIAXone\\ROCEPHIN 1 GM in Sodium Chloride 0.9% 100 ML IVPB SCH (14:17)
[2018-03-06] MEDS: Lactated Ringer's 1,000 ML IV SCH ×2 (03:24→06:24)
[2018-03-06 05:10] LABS: Anion Gap 15 mmol/L (10-20); BUN (Urea Nitrogen) 12 mg/dL (8.4-25.7); Calc. Creatinine Clearance 84 mL/min (70-130); Calcium 9.1 mg/dL (7.8-10.44); Carbon Dioxide 21 mmol/L (23-31); Chloride 99 mmol/L (98-107); Estimated GFR-MDRD Greater than 90; Glucose 92 mg/dL (83-110); Potassium 4.3 mmol/L (3.5-5.1); Sodium 131 mmol/L (136-145)
--- NOTE | 2018-03-06 05:56 | PDOC.FM ---
- Subjective Subjective: 82 yo M here for UTI and weakness. No complaints today. Awaiting placement. - Objective Vital Signs & Weight: Vital Signs (12 hours) Temp Pulse Resp BP Pulse Ox 03/05/18 20:00 98.4 F 74 18 138/71 96 Weight Weight 76.657 kg I&O: 03/04/18 03/05/18 03/06/18 06:59 06:59 06:59 Intake Total 1875 4740 2100 Output Total 446 Balance 1875 4294 2100 Result Diagrams: 03/06/18 04:45 03/06/18 04:45 <Kala Butler - Last Filed: 03/06/18 08:38> - Objective Vital Signs & Weight: Vital Signs (12 hours) Temp Pulse Resp BP BP Pulse Ox 03/06/18 09:13 102 H 129/79 03/06/18 07:37 98.0 F 102 H 18 129/79 98 Weight Weight 76.657 kg I&O: 03/05/18 03/06/18 03/07/18 06:59 06:59 06:59 Intake Total 4740 2100 Output Total 446 Balance 4294 2100 Result Diagrams: 03/06/18 04:45 03/06/18 04:45 <Rona Ward - Last Filed: 03/06/18 11:12> Phys Exam - Physical Examination Constitutional: NAD Respiratory: no wheezing, no rales, no rhonchi, clear to auscultation bilateral Cardiovascular: RRR, no significant murmur, no rub Gastrointestinal: soft, non-tender, no distention Musculoskeletal: no edema, pulses present Psychiatric: normal affect, A&O x 3 Skin: cap refill <2 seconds <Kala Butler - Last Filed: 03/06/18 08:38> Dx/Plan (1) Physical deconditioning Code(s): R53.81 - OTHER MALAISE Status: Acute (2) Complicated UTI (urinary tract infection) Code(s): N39.0 - URINARY TRACT INFECTION, SITE NOT SPECIFIED Status: Acute (3) BPH (benign prostatic hyperplasia) Code(s): N40.0 - BENIGN PROSTATIC HYPERPLASIA WITHOUT LOWER URINRY TRACT SYMP Status: Chronic (4) Vascular dementia Code(s): F01.50 - VASCULAR DEMENTIA WITHOUT BEHAVIORAL DISTURBANCE Status: Chronic (5) Nicotine dependence Code(s): F17.200 - NICOTINE DEPENDENCE, UNSPECIFIED, UNCOMPLICATED Status: Chronic (6) History of cardiac arrhythmia Code(s): Z86.79 - PERSONAL HISTORY OF OTHER DISEASES OF THE CIRCULATORY SYSTEM Status: Chronic (7) HTN (hypertension) Code(s): I10 - ESSENTIAL (PRIMARY) HYPERTENSION Status: Chronic (8) HLD (hyperlipidemia) Code(s): E78.5 - HYPERLIPIDEMIA, UNSPECIFIED Status: Chronic - Plan Plan: Plan: 1. Complicated UTI: UA positive for UTI s/p 2G of Rocephin in ED. We will continue treatment with Rocephin 1G daily until cultures result. Patient does not meet SIRS criteria on admission. LA 2.2 which is reassuring. Blood (NGTD) pending and urine cx showed mixed skin elisabeth. Plan to transition to oral ceftriaxone outpt. 2. Trichomaniasis: UA positive for trichomoniasis. Treated with one time dose of 2G of flagyl. Trich in males associated with other urologic infections including prostatitis, no s/s of other infections at this time. GC/Chlam, RPR, and HIV all negative. 3. Deconditioning/Weakness: acute change in functional status. He is unable to ambulate since calling EMS. No signs of neurologic insult. No FND's or change in mental status. Will consult PT/OT for evaluation and recommendations. We anticipate at least a short term rehabilitation stay. Improved. Was able to stand on his own. [facility] referral for rehab. Awaiting pre-auth for health insurance from [facility]. Family notified and updated yesterday 03/05. 4. Suspected MANUEL, resolved: baseline Cr of 1.0, bumped to 1.35 on admission. FENa 0.7%, prerenal etiology. LR at 125cc/hr. Monitor I/O's. GFR improved 03/04 to >90, BUN/Cr improved to 19/.69. Stable. 5. Hyperbilirubinemia, resolved: elevated total bilirubin at 2.2. Normal AST/ALT /Alk Phos. Will get direct and indirect bili. If still elevated upon recheck, will need RUQ US. No RUQ abdominal pain or n/v at this time. TBili improved. 6. Hypokalemia, resolved: repleted 03/03 with 40mEq of KCl one time. Mag wnl. K: 3.3 today. Will receive 40 mEq 03/05. K: 4.3. 7. Hyponatremia: Na 131. Asymptomatic at this time. 8. Normocytic Anemia: Hg 9.5. This Hg is unchanged from 2014, per review of records. Denies CP, SOB, PIMENTEL. 9. Dementia, likely vascular: MMSE done in August was 06/14 showing a worsening in cognition. No gross behavioral changes. Being managed by outpatient primary care provider. Namenda dose was recently increased, will continue during this hospitalization. 10. HTN: Continue HCTZ, amlodipine, metoprolol. Will continue to monitor and adjust as needed. 11. BPH: continue home dose of tamsulosin. No s/s of urinary retention at this time 12. Hx Cardiac arrhythmia. EKG 03/02 showed RBBB, sinus rhythm. Code status: Full code F/up outpatient with PCP Joaquín at [facility] in 1-2 weeks. <Kala Butler - Last Filed: 03/06/18 08:38> (1) Physical deconditioning Code(s): R53.81 - OTHER MALAISE Status: Acute (2) Complicated UTI (urinary tract infection) Code(s): N39.0 - URINARY TRACT INFECTION, SITE NOT SPECIFIED Status: Acute (3) BPH (benign prostatic hyperplasia) Code(s): N40.0 - BENIGN PROSTATIC HYPERPLASIA WITHOUT LOWER URINRY TRACT SYMP Status: Chronic (4) Vascular dementia Code(s): F01.50 - VASCULAR DEMENTIA WITHOUT BEHAVIORAL DISTURBANCE Status: Chronic (5) Nicotine dependence Code(s): F17.200 - NICOTINE DEPENDENCE, UNSPECIFIED, UNCOMPLICATED Status: Chronic (6) History of cardiac arrhythmia Code(s): Z86.79 - PERSONAL HISTORY OF OTHER DISEASES OF THE CIRCULATORY SYSTEM Status: Chronic (7) HTN (hypertension) Code(s): I10 - ESSENTIAL (PRIMARY) HYPERTENSION Status: Chronic (8) HLD (hyperlipidemia) Code(s): E78.5 - HYPERLIPIDEMIA, UNSPECIFIED Status: Chronic <Rona Ward - Last Filed: 03/06/18 11:12> Attending Addendum - Attending Addendum Date/Time: 03/06/18 1110 I personally evaluated the patient and discussed the management with Dr. Elmo Butler I agree with the History, Examination, Assessment and Plan documented above with any addition or exceptions noted below- Patient without complaints. Tolerating diet. Afebrile VSS. A/P: 1) UTI- improved; on po abx. 2) Deconditioning- awaiting insurance approval for rehab. If not approved, plan for SNU/swing bed. <Rona Ward - Last Filed: 03/06/18 11:12>
[2018-03-06 06:09] LABS: #Eosinphils 0.1 thou/uL (0.0-0.7); #Lymphocytes 1.1 thou/uL (1.20-3.40); #Monocytes 0.4 thou/uL (0.11-0.59); #Neutrophils 4.5 thou/uL (1.40-6.50); %Basophils 0.2 % (0.0-1.0); %Eosinophils 1.9 % (0.0-10.0); %Lymphocytes 17.7 % (21.0-51.0); %Monocytes 6.6 % (0.0-10.0); %Neutrophils 73.7 % (42.0-75.0); Acanthocytes SLIGHT = 1-5 cells (100X) (None Seen); Hemoglobin 10.8 g/dL (14.0-18.0); MDiff Complete? YES; Mean Corpuscular HGB CONC 32.3 g/dL (32.0-36.0); Mean Corpuscular Hemoglobin 29.9 pg (27.0-31.0); Mean Corpuscular Volume 92.8 fL (78.0-98.0); Mean Platelet Volume 6.5 fL (7.4-10.4); PLT Morphology Comment Appears Adequate; Platelet Count 240 thou/uL (130-400); RBC Distribution Width 12.3 % (11.5-14.5); Red Blood Cell (RBC) Count 3.62 mill/uL (4.70-6.10); White Blood Cell (WBC) Count 6.1 thou/uL (4.8-10.8)
[2018-03-06] MEDS: Hydrochlorothiazide 25 MG TAB PO SCH (09:12)
[2018-03-06] MEDS: Amlodipine 10 MG TAB PO SCH (09:13)
[2018-03-06] MEDS: Tamsulosin HCl 0.4 MG CAP PO SCH (09:13)
[2018-03-06] MEDS: Metoprolol Tartrate 25 MG TAB PO SCH (09:13)
[2018-03-06] MEDS: Atorvastatin Calcium 40 MG TAB PO SCH (09:13)
[2018-03-06] MEDS: Nicotine 14 MG PATCH TD SCH (14:50)
[2018-03-06] MEDS: cefTRIAXone\\ROCEPHIN 1 GM in Sodium Chloride 0.9% 100 ML IVPB SCH (16:00)
--- NOTE | 2018-03-07 06:12 | PDOC.FM ---
- Subjective Subjective: 82 yo M here for UTI and deconditioning. [facility], stable overnight. - Objective Vital Signs & Weight: Vital Signs (12 hours) Temp Pulse Resp BP Pulse Ox 03/06/18 20:00 98.0 F 77 14 97 03/06/18 19:48 98.0 F 77 14 127/73 97 Weight Weight 76.657 kg I&O: 03/05/18 03/06/18 03/07/18 06:59 06:59 06:59 Intake Total 4740 2100 720 Output Total 446 Balance 4294 2100 720 Result Diagrams: 03/06/18 04:45 03/06/18 04:45 <Kala Butler - Last Filed: 03/07/18 07:29> - Objective Vital Signs & Weight: Vital Signs (12 hours) Temp Pulse Resp BP BP Pulse Ox 03/07/18 08:44 72 106/61 03/07/18 08:00 98.1 F 72 18 97 03/07/18 07:44 98.1 F 72 18 106/61 92 L Weight Weight 76.657 kg I&O: 03/06/18 03/07/18 03/08/18 06:59 06:59 06:59 Intake Total 2100 720 Balance 2100 720 Result Diagrams: 03/06/18 04:45 03/06/18 04:45 <Abdoulaye Santos - Last Filed: 03/07/18 16:43> Phys Exam - Physical Examination Constitutional: NAD Respiratory: no wheezing, no rales, no rhonchi, clear to auscultation bilateral Cardiovascular: RRR, no significant murmur, no rub Gastrointestinal: soft Musculoskeletal: no edema Skin: cap refill <2 seconds <Kala Butler - Last Filed: 03/07/18 07:29> Dx/Plan (1) Physical deconditioning Code(s): R53.81 - OTHER MALAISE Status: Acute (2) Complicated UTI (urinary tract infection) Code(s): N39.0 - URINARY TRACT INFECTION, SITE NOT SPECIFIED Status: Acute (3) BPH (benign prostatic hyperplasia) Code(s): N40.0 - BENIGN PROSTATIC HYPERPLASIA WITHOUT LOWER URINRY TRACT SYMP Status: Chronic (4) Vascular dementia Code(s): F01.50 - VASCULAR DEMENTIA WITHOUT BEHAVIORAL DISTURBANCE Status: Chronic (5) Nicotine dependence Code(s): F17.200 - NICOTINE DEPENDENCE, UNSPECIFIED, UNCOMPLICATED Status: Chronic (6) History of cardiac arrhythmia Code(s): Z86.79 - PERSONAL HISTORY OF OTHER DISEASES OF THE CIRCULATORY SYSTEM Status: Chronic (7) HTN (hypertension) Code(s): I10 - ESSENTIAL (PRIMARY) HYPERTENSION Status: Chronic (8) HLD (hyperlipidemia) Code(s): E78.5 - HYPERLIPIDEMIA, UNSPECIFIED Status: Chronic - Plan Plan: Plan: 1. Complicated UTI: UA positive for UTI s/p 2G of Rocephin in ED. We will continue treatment with Rocephin 1G daily until cultures result. Patient does not meet SIRS criteria on admission. LA 2.2 which is reassuring. Blood NGTD and urine cx showed mixed skin elisabeth. Last day of abx today. 2. Trichomaniasis: UA positive for trichomoniasis. Treated with one time dose of 2G of flagyl. Trich in males associated with other urologic infections including prostatitis, no s/s of other infections at this time. GC/Chlam, RPR, and HIV all negative. 3. Deconditioning/Weakness: acute change in functional status. He is unable to ambulate since calling EMS. No signs of neurologic insult. No FND's or change in mental status. Will consult PT/OT for evaluation and recommendations. We anticipate at least a short term rehabilitation stay. Improved. Was able to stand on his own. [facility] denied [facility] health insurance. [facility]. 4. Suspected MANUEL, resolved: baseline Cr of 1.0, bumped to 1.35 on admission. FENa 0.7%, prerenal etiology. LR at 125cc/hr. Monitor I/O's. GFR improved 03/04 to >90, BUN/Cr improved to 19/.69. Stable. 5. Hyperbilirubinemia, resolved: elevated total bilirubin at 2.2. Normal AST/ALT /Alk Phos. Will get direct and indirect bili. If still elevated upon recheck, will need RUQ US. No RUQ abdominal pain or n/v at this time. TBili improved. 6. Hypokalemia, resolved: repleted 03/03 with 40mEq of KCl one time. Mag wnl. K: 3.3 today. Will receive 40 mEq 03/05. K: 4.3. 7. Hyponatremia: Na 131. Asymptomatic at this time. 8. Normocytic Anemia: Hg 9.5. This Hg is unchanged from 2014, per review of records. Denies CP, SOB, PIMENTEL. 9. Dementia, likely vascular: MMSE done in August was 06/14 showing a worsening in cognition. No gross behavioral changes. Being managed by outpatient primary care provider. Namenda dose was recently increased, will continue during this hospitalization. 10. HTN: Continue HCTZ, amlodipine, metoprolol. Will continue to monitor and adjust as needed. 11. BPH: continue home dose of tamsulosin. No s/s of urinary retention at this time 12. Hx Cardiac arrhythmia. EKG 03/02 showed RBBB, sinus rhythm. Code status: Full code F/up outpatient with PCP Joaquín at [facility] in 1-2 weeks. <Kala Butler - Last Filed: 03/07/18 07:29> Attending Addendum - Attending Addendum Date/Time: 03/07/18 1351 I personally evaluated the patient and discussed the management with Dr. Elmo Butler. I agree with the History, Examination, Assessment and Plan documented above with any addition or exceptions noted below. Complicated UTI, Trichomoniasis, Deconditioning, MANUEL, Hypokalemia, and hyperbilirubinemia resolved, Vascular dementia, HTN, BPH, Anemia, Hx of RBBB & Arrhythmia. Awaiting Placement due to unable to provide self care. [facility] <Abdoulaye Santos - Last Filed: 03/07/18 16:43>
[2018-03-07] MEDS: Amlodipine 10 MG TAB PO SCH (08:44)
[2018-03-07] MEDS: Metoprolol Tartrate 25 MG TAB PO SCH (08:44)
[2018-03-07] MEDS: Atorvastatin Calcium 40 MG TAB PO SCH (08:44)
[2018-03-07] MEDS: Tamsulosin HCl 0.4 MG CAP PO SCH (08:44)
[2018-03-07] MEDS: Hydrochlorothiazide 25 MG TAB PO SCH (08:44)
[2018-03-07] MEDS: Nicotine 14 MG PATCH TD SCH (14:39)
[2018-03-07] MEDS: cefTRIAXone\\ROCEPHIN 1 GM in Sodium Chloride 0.9% 100 ML IVPB SCH (14:39)
--- NOTE | 2018-03-07 17:41 | EKG ---
Test Reason : Blood Pressure : / mmHG Vent. Rate : 077 BPM Atrial Rate : 077 BPM P-R Int : 190 ms QRS Dur : 142 ms QT Int : 422 ms P-R-T Axes : 030 270 014 degrees QTc Int : 477 ms Normal sinus rhythm Right bundle branch block Septal infarct (cited on or before 02-MAR-2018) Abnormal ECG When compared with ECG of 02-MAR-2018 12:14, (Unconfirmed) OK interval has decreased Questionable change in initial forces of Septal leads Confirmed by RANDEE BHATT (2) on 03/07/2018 5:40:48 PM Referred By: SHASHA Confirmed By:RANDEE BHATT
--- NOTE | 2018-03-08 06:00 | PDOC.FM ---
- Subjective Subjective: 82 AA M admitted for weakness 2/2 to UTI. [facility]. - Objective Vital Signs & Weight: Vital Signs (12 hours) Temp Pulse Resp BP Pulse Ox 03/07/18 20:00 98.9 F 75 18 95 03/07/18 19:00 98.9 F 75 18 108/55 L 95 Weight Weight 76.657 kg I&O: 03/06/18 03/07/18 03/08/18 06:59 06:59 06:59 Intake Total 2100 720 1060 Balance 2100 720 1060 Result Diagrams: 03/06/18 04:45 03/06/18 04:45 <Kala Butler - Last Filed: 03/08/18 07:15> - Objective Vital Signs & Weight: Vital Signs (12 hours) Temp Pulse Resp BP BP Pulse Ox 03/08/18 08:45 74 114/69 03/08/18 08:00 98.7 F 74 18 95 03/08/18 07:29 98.7 F 74 18 114/69 96 Weight Weight 76.657 kg I&O: 03/07/18 03/08/18 03/09/18 06:59 06:59 06:59 Intake Total 720 1460 900 Balance 720 1460 900 Result Diagrams: 03/06/18 04:45 03/06/18 04:45 <Abdoulaye Santos - Last Filed: 03/08/18 19:07> Phys Exam - Physical Examination Constitutional: NAD (sleeping on exam) Respiratory: no wheezing, no rales, no rhonchi, clear to auscultation bilateral Cardiovascular: RRR, no significant murmur, no rub Gastrointestinal: soft Musculoskeletal: no edema <Kala Butler - Last Filed: 03/08/18 07:15> Dx/Plan (1) Physical deconditioning Code(s): R53.81 - OTHER MALAISE Status: Acute (2) Complicated UTI (urinary tract infection) Code(s): N39.0 - URINARY TRACT INFECTION, SITE NOT SPECIFIED Status: Acute (3) BPH (benign prostatic hyperplasia) Code(s): N40.0 - BENIGN PROSTATIC HYPERPLASIA WITHOUT LOWER URINRY TRACT SYMP Status: Chronic (4) Vascular dementia Code(s): F01.50 - VASCULAR DEMENTIA WITHOUT BEHAVIORAL DISTURBANCE Status: Chronic (5) Nicotine dependence Code(s): F17.200 - NICOTINE DEPENDENCE, UNSPECIFIED, UNCOMPLICATED Status: Chronic (6) History of cardiac arrhythmia Code(s): Z86.79 - PERSONAL HISTORY OF OTHER DISEASES OF THE CIRCULATORY SYSTEM Status: Chronic (7) HTN (hypertension) Code(s): I10 - ESSENTIAL (PRIMARY) HYPERTENSION Status: Chronic (8) HLD (hyperlipidemia) Code(s): E78.5 - HYPERLIPIDEMIA, UNSPECIFIED Status: Chronic - Plan Plan: 1. Complicated UTI: UA positive for UTI s/p 2G of Rocephin in ED. We will continue treatment with Rocephin 1G daily until cultures result. Patient does not meet SIRS criteria on admission. LA 2.2 which is reassuring. Blood NGTD and urine cx showed mixed skin elisabeth. Abx discontinued 03/07. 2. Trichomaniasis: UA positive for trichomoniasis. Treated with one time dose of 2G of flagyl. Trich in males associated with other urologic infections including prostatitis, no s/s of other infections at this time. GC/Chlam, RPR, and HIV all negative. 3. Deconditioning/Weakness: acute change in functional status. He is unable to ambulate since calling EMS. No signs of neurologic insult. No FND's or change in mental status. Will consult PT/OT for evaluation and recommendations. We anticipate at least a short term rehabilitation stay. Improved. Was able to stand on his own. [facility] denied [facility] health [facility]. [place] transition [facility] [facility]. 4. Suspected MANUEL, resolved: baseline Cr of 1.0, bumped to 1.35 on admission. FENa 0.7%, prerenal etiology. LR at 125cc/hr. Monitor I/O's. GFR improved 03/04 to >90, BUN/Cr improved to 19/.69. Stable. 5. Hyperbilirubinemia, resolved: elevated total bilirubin at 2.2. Normal AST/ALT /Alk Phos. Will get direct and indirect bili. If still elevated upon recheck, will need RUQ US. No RUQ abdominal pain or n/v at this time. TBili improved. 6. Hypokalemia, resolved: repleted 03/03 with 40mEq of KCl one time. Mag wnl. K: 3.3 today. Will receive 40 mEq 03/05. K: 4.3. 7. Hyponatremia: Na 131. Asymptomatic at this time. 8. Normocytic Anemia: Hg 9.5. This Hg is unchanged from 2014, per review of records. Denies CP, SOB, PIMENTEL. 9. Dementia, likely vascular: MMSE done in August was 06/14 showing a worsening in cognition. No gross behavioral changes. Being managed by outpatient primary care provider. Namenda dose was recently increased, will continue during this hospitalization. 10. HTN: Continue HCTZ, amlodipine, metoprolol. Will continue to monitor and adjust as needed. 11. BPH: continue home dose of tamsulosin. No s/s of urinary retention at this time 12. Hx Cardiac arrhythmia. EKG 03/02 showed RBBB, sinus rhythm. Code status: Full code F/up outpatient with PCP Joaquín at [facility] in 1-2 weeks. <Kala Butler - Last Filed: 03/08/18 07:15> Attending Addendum - Attending Addendum Date/Time: 03/08/18 190 I personally evaluated the patient and discussed the management with Dr. Elmo Butler. I agree with the History, Examination, Assessment and Plan documented above with any addition or exceptions noted below. He is pleasantly demented. UTI - has completed therapy. Awaiting placement [place] <Abdoulaye Santos - Last Filed: 03/08/18 19:07>
[2018-03-08] MEDS: Atorvastatin Calcium 40 MG TAB PO SCH (08:45)
[2018-03-08] MEDS: Amlodipine 10 MG TAB PO SCH (08:45)
[2018-03-08] MEDS: Hydrochlorothiazide 25 MG TAB PO SCH (08:45)
[2018-03-08] MEDS: Tamsulosin HCl 0.4 MG CAP PO SCH (08:45)
[2018-03-08] MEDS: Metoprolol Tartrate 25 MG TAB PO SCH (08:46)
[2018-03-08] MEDS: Nicotine 14 MG PATCH TD SCH (14:04)
--- NOTE | 2018-03-09 06:20 | PDOC.FM ---
- Subjective Subjective: Patient is an 82 yo AA M admitted for weakness 2/2 to UTI. Awaiting placement to SNF. On exam today, patient is resting comfortably in bed eating breakfast. Patient has no complaints or concerns. He denies chest pain, SOB, weakness, fever, NVD. - Objective Vital Signs & Weight: Vital Signs (12 hours) Temp Pulse Resp BP Pulse Ox 03/08/18 19:39 99.2 F 79 18 95 03/08/18 19:10 99.2 F 79 18 120/72 95 Weight Weight 76.657 kg I&O: 03/07/18 03/08/18 03/09/18 06:59 06:59 06:59 Intake Total 720 1460 900 Balance 720 1460 900 Result Diagrams: 03/06/18 04:45 03/06/18 04:45 <Sabrina Garcia - Last Filed: 03/09/18 09:22> - Objective Vital Signs & Weight: Vital Signs (12 hours) Temp Pulse Resp BP BP Pulse Ox 03/09/18 16:11 98.2 F 69 16 121/65 97 03/09/18 08:16 93 143/81 H 03/09/18 08:00 99.0 F 93 16 03/09/18 07:47 99.0 F 93 16 143/81 H 97 Weight Weight 76.657 kg I&O: 03/08/18 03/09/18 03/10/18 06:59 06:59 06:59 Intake Total 1460 1400 480 Balance 1460 1400 480 Result Diagrams: 03/06/18 04:45 03/06/18 04:45 <Luke Jarrett - Last Filed: 03/09/18 19:38> Phys Exam - Physical Examination Constitutional: NAD HEENT: PERRLA, moist MMs, sclera anicteric Neck: no nodes, no JVD, supple Respiratory: no wheezing, no rales, no rhonchi Cardiovascular: RRR, no significant murmur Gastrointestinal: soft, non-tender, positive bowel sounds Musculoskeletal: no edema, pulses present Neurological: non-focal, moves all 4 limbs Psychiatric: normal affect, A&O x 3 Skin: no rash, normal turgor <Sabrina Garcia - Last Filed: 03/09/18 09:22> Dx/Plan (1) Complicated UTI (urinary tract infection) Code(s): N39.0 - URINARY TRACT INFECTION, SITE NOT SPECIFIED Status: Acute Plan: - UA positive for UTI s/p 2G of Rocephin in ED. - Urine culture showed mixed elisabeth: resolved and tx with rocephin. Abx discontinued 03/07. (2) Physical deconditioning Code(s): R53.81 - OTHER MALAISE Status: Acute Plan: - Deconditioning/Weakness: acute change in functional status. He is unable to ambulate since calling EMS. No signs of neurologic insult. No FND's or change in mental status. - Will continue daily PT/OT for evaluation and recommendations. Was able to stand on his own and ambulate with some assistance - Will transition to shelter facility - awaiting to hear back today. (3) Fall Code(s): W19.XXXA - UNSPECIFIED FALL, INITIAL ENCOUNTER Status: Acute Plan: - possible fall - stable condition currently; CT head and cspine neg - on fall risk protocol (4) Normocytic anemia Code(s): D64.9 - ANEMIA, UNSPECIFIED Status: Acute Plan: - last Hgb 9.5 - unchanged from 2014 from records (5) Dementia Code(s): F03.90 - UNSPECIFIED DEMENTIA WITHOUT BEHAVIORAL DISTURBANCE Status: Acute Plan: - likely vascular - MMSE in Aug 2017 was 06/14 showing a worsening cognition. No gross behavioral changes. - Namenda dose was recently increased, will continue during this stay (6) HTN (hypertension) Code(s): I10 - ESSENTIAL (PRIMARY) HYPERTENSION Status: Chronic Plan: - continue HCTZ, amlodipine, metoprolol - Will continue to monitor and adjust as needed. Recent BPs 120s/70s (7) MANUEL (acute kidney injury) Code(s): N17.9 - ACUTE KIDNEY FAILURE, UNSPECIFIED Status: Acute Plan: - resolved: baseline Cr of 1, bumped to 1.35 on admission - FENa 0.7%, prerenal etiology - monitor I/Os - GFR had improved to >90, BUN/Cr improved as well 19/0.69 (8) BPH (benign prostatic hyperplasia) Code(s): N40.0 - BENIGN PROSTATIC HYPERPLASIA WITHOUT LOWER URINRY TRACT SYMP Status: Chronic Plan: - continue home dose of tamsulosin - no s/s of urinary retention at this time (9) Arrhythmia Code(s): I49.9 - CARDIAC ARRHYTHMIA, UNSPECIFIED Status: Acute Plan: - vital signs stable - no symptoms at this time (10) Hyperbilirubinemia Code(s): E80.6 - OTHER DISORDERS OF BILIRUBIN METABOLISM Status: Acute Plan: - resolved: elevated total bili at 2.2. Normal AST/ALT/Alk Phos (11) Hypokalemia Code(s): E87.6 - HYPOKALEMIA Status: Acute Plan: - resolved: repleted 03/03 with 40mEq of KCl one time. Mag wnl. (12) Hyponatremia Code(s): E87.1 - HYPO-OSMOLALITY AND HYPONATREMIA Status: Acute Plan: - Hyponatremia: Na 131. Asymptomatic at this time. (13) Trichomonal infection Status: Acute Plan: - resolved - tx with flagyl - Plan Plan: DISPO: awaiting placement at SNF today Code status: Full code F/up outpatient with PCP Joaquín at [facility] in 1-2 weeks. <Sabrina Garcia - Last Filed: 03/09/18 09:22> Attending Addendum - Attending Addendum Date/Time: 03/09/18 1937 I personally evaluated the patient and discussed the management with Dr. Garcia I agree with the History, Examination, Assessment and Plan documented above with any addition or exceptions noted below.Patient should be ready for dismissal when bed available to rehab patient. <Luke Jarrett - Last Filed: 03/09/18 19:38>
[2018-03-09] MEDS: Hydrochlorothiazide 25 MG TAB PO SCH (08:15)
[2018-03-09] MEDS: Atorvastatin Calcium 40 MG TAB PO SCH (08:16)
[2018-03-09] MEDS: Amlodipine 10 MG TAB PO SCH (08:16)
[2018-03-09] MEDS: Tamsulosin HCl 0.4 MG CAP PO SCH (08:16)
[2018-03-09] MEDS: Metoprolol Tartrate 25 MG TAB PO SCH (08:16)
[2018-03-09] MEDS: Nicotine 14 MG PATCH TD SCH (13:36)
[2018-03-09 16:13] VITALS: BP 121/65; TEMP 98.2
--- NOTE | 2018-03-10 07:13 | DIS-2 ---
DATE OF ADMISSION: 03/02/2018 DATE OF DISCHARGE: 03/09/2018 RESIDENT: Kala Butler M.D. ADMITTING ATTENDING: Rona Ward M.D. DISCHARGE ATTENDING: Rona Ward M.D. CONSULTATIONS: None. PROCEDURES: 1. Brain CT on 03/02/2018 showed small vessel disease and cerebral volume loss with no intracranial hemorrhage or displaced calvarial fracture. Incidentally noted lytic lesion within the front calvarium on the right. Benign hemangioma is favored. This could be best assessed via follow up bone scan as clinically warranted. 2. Cervical spine CT on 03/02/2018. Impression: Degenerative changes of the cervical spine without acute osseous abnormality. 3. EKG on 03/03/2018 show right bundle branch block, sinus rhythm. PRIMARY DIAGNOSES: 1. Complicated Urinary tract infection. 2. Deconditioning. 3. Trichomoniasis. SECONDARY DIAGNOSES: 1. Hyponatremia. 2. Hypertension. 3. Hyperlipidemia. 4. Moderate dementia. 5. Benign prostatic hypertrophy. 6. Tobacco abuse. 7. Normocytic anemia. 8. Cardiac arrhythmias. DISCONTINUED MEDICATION: Flagyl on 03/03/2018, Rocephin from 03/02/2018 to . DISCHARGE MEDICATIONS: 1. Tamsulosin HCL 0.4 mg p.o. daily. 2. Metoprolol tartrate 25 mg p.o. daily. 3. Atorvastatin calcium 1 tab p.o. daily. 4. Aspirin 81 mg p.o. daily. 5. Amlodipine 10 mg p.o. daily. 6. Hydrochlorothiazide 25 mg p.o. daily. 7. Memantine HCL 10 mg p.o. b.i.d. HISTORY OF PRESENT ILLNESS AND HOSPITAL COURSE: This is an 82-year-old male with past medical history of moderate dementia, hypertension, BPH, and cardiac arrhythmia who presented to the ED with a chief complaint of being weak and unable to walk. Granddaughter came to his house where he lives alone, and he was unable to answer the door. EMS brought him to the ED where he was found to have a UTI and was given 2 grams of Rocephin and a bolus of 500 mL normal saline. Review of systems was positive for decreased appetite. The patient denied any other symptoms besides weakness and incontinence. Denied chest pain or shortness of breath, denied burning on urination. Per clinic chart review showed a weight loss of 10 kilograms in the last 7 months. There was concern for possible fall, so CT of the head was taken which was negative and a CT of the C-spine, which showed no displacement of calvarial fracture or intracranial hemorrhage. He was admitted. For his complicated UTI, he was given the 2 grams of Rocephin and then was treated with Rocephin for 5 additional days. His blood cultures were negative at 48 hours and his urine cultures showed mixed elisabeth. He did not meet criteria for sepsis. For his deconditioning, likely secondary to the urinary tract infection. The patient was given a PT and OT consult. Prior to being inpatient, he was able to ambulate on his own without a walker or cane and perform his own activities of daily living. After his discharge, he was sent to detention facility to regain his activities of daily living. For his normocytic anemia, his hemoglobin was stable at 10.8. For his moderate dementia, likely vascular, he scored 10/20 on the mini mental status exam in August. For his hypertension, his home medications of hydrochlorothiazide, amlodipine and metoprolol were continued. For suspected acute kidney injury, he had a creatinine of 1.35. His creatinine remained stable and improved with fluids and time. For his hyperbilirubinemia, his bili was trended down until his hyperbilirubinemia resolved. His hypokalemia was repleted with a few doses of 40 mEq of potassium chloride over few days, and his hypokalemia resolved. Hyponatremia. His sodium was 131. He was asymptomatic. BPH, we continued his home dose of tamsulosin, but he had no symptoms of urinary retention. For his history of cardiac arrhythmia, his EKG on 03/02/2018 showed a right bundle branch block in sinus rhythm. DISCHARGE INSTRUCTIONS: 1. Location: To detention facility. 2. Diet: Heart healthy. 3. Activity: As tolerated. 4. Followup: Follow up with Dr. Zeina Yanes in 7-10 days. [facility]
== END 2018-03-09 16:02 | DRG 690 ==
LOC: ERS 11:51 → T4-A 18:50
PROVIDERS: ADMIT Family Medicine; ATTEND Family Medicine
DX: N39.0 Urinary tract infection, site not specified (principal); N17.9 Acute kidney failure, unspecified; E87.1 Hypo-osmolality and hyponatremia; A59.00 Urogenital trichomoniasis, unspecified; F01.50 Vascular dementia, unspecified severity, without behavioral disturbance, psychotic disturbance, mood disturbance, and anxiety; I45.10 Unspecified right bundle-branch block; I10 Essential (primary) hypertension; N40.0 Benign prostatic hyperplasia without lower urinary tract symptoms; R32 Unspecified urinary incontinence; E78.5 Hyperlipidemia, unspecified; E87.6 Hypokalemia; D64.9 Anemia, unspecified; F17.220 Nicotine dependence, chewing tobacco, uncomplicated; Z86.73 Personal history of transient ischemic attack (TIA), and cerebral infarction without residual deficits; E80.6 Other disorders of bilirubin metabolism; W19.XXXA Unspecified fall, initial encounter; Y92.009 Unspecified place in unspecified non-institutional (private) residence as the place of occurrence of the external cause
CPT/HCPCS: 36415; 70450; 72125; 80048; 80053; 81003; 81015; 82247; 82248; 82553; 82570; 83605; 83735; 83930; 83935; 84300; 84484; 85025; 86780; 87040; 87086; 87389; 87491; 87591; 93005; 93010; 96361; 96365; A4216; G8978-GP-CK; G8979-GP-CJ; G8987-GO-CK; G8988-GO-CI; J0696; J7050; J7120

== ENCOUNTER 2018-04-07 10:10 | Inpatient (IN) | payer MEDICARE ==
[2018-04-07 10:50] LABS: #Eosinphils 0.1 thou/uL (0.0-0.7); #Lymphocytes 1.1 thou/uL (1.20-3.40); #Monocytes 0.2 thou/uL (0.11-0.59); #Neutrophils 7.1 thou/uL (1.40-6.50); %Basophils 0.2 % (0.0-1.0); %Eosinophils 1.1 % (0.0-10.0); %Lymphocytes 12.7 % (21.0-51.0); %Monocytes 2.7 % (0.0-10.0); %Neutrophils 83.3 % (42.0-75.0); Hemoglobin 10.2 g/dL (14.0-18.0); Mean Corpuscular Hemoglobin 30.5 pg (27.0-31.0); Mean Corpuscular Volume 95.2 fL (78.0-98.0); Platelet Count 429 thou/uL (130-400); RBC Distribution Width 13.9 % (11.5-14.5); Red Blood Cell (RBC) Count 3.34 mill/uL (4.70-6.10); White Blood Cell (WBC) Count 8.5 thou/uL (4.8-10.8)
[2018-04-07 11:11] LABS: ALT (SGPT) 57 U/L (8-55); AST (SGOT) 61 U/L (5-34); Albumin 3.2 g/dL (3.4-4.8); Alkaline Phosphatase 241 U/L (40-150); Anion Gap 14 mmol/L (10-20); BUN (Urea Nitrogen) 92 mg/dL (8.4-25.7); Bilirubin, Total 1.1 mg/dL (0.2-1.2); CK (CPK) 103 U/L (30-200); CRP (Inflammatory) 4.01 mg/dL (= or < 0.5); Calc. Creatinine Clearance 0 mL/min (70-130); Calcium 8.9 mg/dL (7.8-10.44); Carbon Dioxide 23 mmol/L (23-31); Chloride 105 mmol/L (98-107); Estimated GFR-MDRD 48; Globulin 4.2 g/dL (2.4-3.5); Glucose 92 mg/dL (83-110); Lipase 45 U/L (8-78); Potassium 3.6 mmol/L (3.5-5.1); Protein, Total 7.4 g/dL (5.8-8.1); Sodium 138 mmol/L (136-145)
[2018-04-07 11:16] LABS: CKMB 1.4 ng/mL (0-6.6)
[2018-04-07 11:51] LABS: Bilirubin Negative (Negative); Blood, Urine Negative (Negative); Clarity CLEAR (Clear); Glucose, Urine (Dipstick) Negative (Negative); Leukocyte Negative (Negative); Nitrite Negative (Negative); Protein, Urine (Dipstick) Negative (Neg-Trace); Specific Gravity, Urine 1.017 (1.002-1.036); pH, Urine 5.5 (5.0-9.0)
--- NOTE | 2018-04-07 12:18 | RAD ---
SINGLE VIEW OF THE CHEST: COMPARISON: 11/17/12. HISTORY: Not tolerating p.o. and eating. Chest pain. FINDINGS: A single view of the chest shows a normal-size cardiomediastinal silhouette with atherosclerotic calc ifications in the aorta. There is no evidence of consolidation, mass, or pleural effusion. Degenera tive changes are seen in the spine. IMPRESSION: 1. No evidence of acute cardiopulmonary disease. 2. Atherosclerotic disease. POS: [facility]
--- NOTE | 2018-04-07 12:22 | CT ---
CT HEAD NONCONTRAST: HISTORY: Altered mental status. COMPARISON: 03/02/18. FINDINGS: There is no evidence of acute intracranial hemorrhage or infarct. Diffuse cortical trophy and chroni c ischemic small-vessel disease are again demonstrated. No mass effect or shift of midline structure s. Visualized paranasal sinuses remain well aerated. IMPRESSION: Chronic-type findings are stable. POS: [facility]
--- NOTE | 2018-04-07 12:29 | PDOC.FPRHP ---
- History of Present Illness Chief Complaint: decreased appetite History of Present Illness: Mr. Ignacio is an 82 yo AAM who is brought in by granddaughter for decreased appetite since being back at home. She reports minimal desire to eat or get out of bed. Also has noticed change in mental status. Describes him as awake and will converse but sometimes confused as to where he saying to her "take me home " when they are at home. She also says he doesn't really get out of bed which just one month ago he was very active, independently walking and taking care of himself . One month ago he was hospitalized for presumed fall. Hospital workup showed UTI and trichomonas. CTHead at that time showed lytic lesion in front calvarium, likely a benign hemangioma. He was discharged to SNF and recently returned home this past week. Daughter says ever since his return home he hasn' t been the same- talking less, doesn't really walk around, doesn't want to eat. Will say "oh lord" as if in pain particularly while eating. She also reported seeing red blood in stool one month ago before last hospital admission and has apparently had a 22lb weight loss in the past month. Patient denies chest pain, nausea, diarrhea. - Allergies/Adverse Reactions Allergies Allergy/AdvReac Type Severity Reaction Status Date / Time lisinopril Allergy Swollen Verified 09/14/13 11:03 Lips No Known Drug Allergies Allergy Verified 09/13/13 21:09 - Home Medications Medication Instructions Recorded Confirmed Type Metoprolol Tartrate [Lopressor] 25 mg PO DAILY 09/13/13 04/07/18 History Tamsulosin HCl [Flomax] 0.4 mg PO DAILY 09/13/13 04/07/18 History Amlodipine [Norvasc] 10 mg PO DAILY 03/02/18 04/07/18 History Aspirin [Aspirin Chewable Tablet] 81 mg PO DAILY 03/02/18 04/07/18 History Atorvastatin Calcium 1 tab PO DAILY 03/02/18 04/07/18 History Hydrochlorothiazide 25 mg PO DAILY 03/02/18 04/07/18 History Memantine HCl 10 mg PO BID 03/02/18 04/07/18 History Acetaminophen [Tylenol] 500 mg PO Q6H PRN 04/07/18 04/07/18 History Magnesium Hydroxide [Milk of 2,400 mg PO Q24H PRN 04/07/18 04/07/18 History Magnesia] - History PMHx: Vascular dementia, cardiac arrhytmia, BPH, HTN, TIA PSHx: cataracts, inguinal hernia repair FHx: heart disease, colon CA in mom, DM 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 denies: vomiting, constipation, abdominal pain Skin: denies: rashes, lesions Musculoskeletal: denies: pain, tenderness Neurological: denies: seizure, weakness - Vital signs BP: [110/64] HR: [62] RR: [14] Tmax: [97.6] Pox: [98]% on [RA] Wt: [] - Physical Exam Constitutional: NAD HEENT: normocephalic and atraumatic, EOMI, normal nasal mucosa, other -HEENT: scleral icterus, poor dentition, cry mucosal membranes Neck: trachea midline Chest: no-tender to palpation, no lesions Heart: RRR, normal S1/S2 Lungs: CTAB, no respiratory distress, good air movement Abdomen: soft, non-tender, other -Abdomen: umbilical hernia present,irreducible, no TTP Musculoskeletal: normal structure Neurological: CN II-XII intact -Skin: decreased skin turgor, left knee superifical skin lesions. sacral ulcer: 1 inch in diameter, superficial, non erythematous, no drainage Heme/Lymphatic: no unusual bruising or bleeding -Psychiatric: A&O x2 FMR H&P: Results - Labs Result Diagrams: 04/07/18 10:36 04/07/18 10:36 Lab results: WBC 8.5 thou/uL (4.8-10.8) 04/07/18 10:36 Hgb 10.2 g/dL (14.0-18.0) L 04/07/18 10:36 Hct 31.8 % (42.0-52.0) L 04/07/18 10:36 MCV 95.2 fL (78.0-98.0) 04/07/18 10:36 Plt Count 429 thou/uL (130-400) H 04/07/18 10:36 Neutrophils % 83.3 % (42.0-75.0) H 04/07/18 10:36 Sodium 138 mmol/L (136-145) 04/07/18 10:36 Potassium 3.6 mmol/L (3.5-5.1) 04/07/18 10:36 Chloride 105 mmol/L (98-107) 04/07/18 10:36 Carbon Dioxide 23 mmol/L (23-31) 04/07/18 10:36 BUN 92 mg/dL (8.4-25.7) H 04/07/18 10:36 Creatinine 1.65 mg/dL (0.6-1.3) H 04/07/18 10:36 Glucose 92 mg/dL (83-110) 04/07/18 10:36 Lactic Acid 1.5 mmol/L (0.5-2.2) 04/07/18 10:36 Calcium 8.9 mg/dL (7.8-10.44) 04/07/18 10:36 Total Bilirubin 1.1 mg/dL (0.2-1.2) 04/07/18 10:36 AST 61 U/L (5-34) H 04/07/18 10:36 ALT 57 U/L (8-55) H 04/07/18 10:36 Alkaline Phosphatase 241 U/L (40-150) H 04/07/18 10:36 Creatine Kinase 103 U/L (30-200) 04/07/18 10:36 CK-MB (CK-2) 1.4 ng/mL (0-6.6) 04/07/18 10:36 C-Reactive Protein 4.01 mg/dL (= or < 0.5) H 04/07/18 10:36 Serum Total Protein 7.4 g/dL (5.8-8.1) 04/07/18 10:36 Albumin 3.2 g/dL (3.4-4.8) L 04/07/18 10:36 Lipase 45 U/L (8-78) 04/07/18 10:36 Urine Ketones Negative mg/dL (Negative) 04/07/18 11:27 Urine Blood Negative (Negative) 04/07/18 11:27 Urine Nitrite Negative (Negative) 04/07/18 11:27 Ur Leukocyte Esterase Negative (Negative) 04/07/18 11:27 FMR H&P: A/P - Problem List (1) Encephalopathy Current Visit: Yes Status: Acute Code(s): G93.40 - ENCEPHALOPATHY, UNSPECIFIED (2) MANUEL (acute kidney injury) Current Visit: No Status: Acute Code(s): N17.9 - ACUTE KIDNEY FAILURE, UNSPECIFIED (3) Dementia Current Visit: No Status: Acute Code(s): F03.90 - UNSPECIFIED DEMENTIA WITHOUT BEHAVIORAL DISTURBANCE (4) BPH (benign prostatic hyperplasia) Current Visit: No Status: Chronic Code(s): N40.0 - BENIGN PROSTATIC HYPERPLASIA WITHOUT LOWER URINRY TRACT SYMP (5) HLD (hyperlipidemia) Current Visit: No Status: Chronic Code(s): E78.5 - HYPERLIPIDEMIA, UNSPECIFIED (6) HTN (hypertension) Current Visit: No Status: Chronic Code(s): I10 - ESSENTIAL (PRIMARY) HYPERTENSION (7) History of cardiac arrhythmia Current Visit: No Status: Chronic Code(s): Z86.79 - PERSONAL HISTORY OF OTHER DISEASES OF THE CIRCULATORY SYSTEM - Plan 82 yo M with encephalopathy (1) Encephalopathy Current Visit: Yes Status: Acute Code(s): G93.40 - ENCEPHALOPATHY, UNSPECIFIED -ddx: vascular dementia vs. underlying malignancy -UA nml, CXR nml, no white count -elevated CRP -will look at clinic records for prior colonoscopies -CT brain to verify mets -If positive --> consider PSA, CT chest and abdomen (2) MANUEL (acute kidney injury) Current Visit: No Status: Acute Code(s): N17.9 - ACUTE KIDNEY FAILURE, UNSPECIFIED -likely prerenal -will start on LR (3) Dementia Current Visit: No Status: Acute Code(s): F03.90 - UNSPECIFIED DEMENTIA WITHOUT BEHAVIORAL DISTURBANCE -continue memantione (4) BPH (benign prostatic hyperplasia) Current Visit: No Status: Chronic Code(s): N40.0 - BENIGN PROSTATIC HYPERPLASIA WITHOUT LOWER URINRY TRACT SYMP -continue tamsulosin (5) HLD (hyperlipidemia) Current Visit: No Status: Chronic Code(s): E78.5 - HYPERLIPIDEMIA, UNSPECIFIED -continue home atorvastatin (6) HTN (hypertension) Current Visit: No Status: Chronic Code(s): I10 - ESSENTIAL (PRIMARY) HYPERTENSION -continue home amlodipine, hctz (7) History of cardiac arrhythmia Current Visit: No Status: Chronic Code(s): Z86.79 - PERSONAL HISTORY OF OTHER DISEASES OF THE CIRCULATORY SYSTEM -continue home BB (8) normoctyic anemia -could be due to occult GI bleed -will order FOBT -iron studies, folate, b12, reticulocyte count dvt ppx: lovenox discussed with dr. manning FMR H&P: Upper Level - Pertinent history 82 yo gentleman with pmhx of vascular dementia presents with altered mental status. Granddaughter states he was recently discharged from the hospital to the [facility] for deconditioning. He was then discharged home recently and has been unable to get out of bed and has had decreased po intake for the past several weeks. The granddaughter was told he had a lytic lesion on brain CT but wasn't sure what to do with that information. She states that she thinks he had dementia but is unsure of what is going on. She said prior to the [facility] stay, he was a&ox2. He has periods per granddaughter where he stops breathing and stares off into space. He is not ambulatory and hasn't been eating regular meals. - Pertinent findings PE: Gen: NAD, a&ox2 Cardio: RRR, normal s1 and s2, no m/r/g Resp: CTAB no w/r/r Abd: thin, soft, nondistended skin: small sacral ulcer neuro: 4/5 weakness in upper and lower extremities; follows commands, answers questions; has periods of staring off into space - Plan Date/Time: 04/07/18 1229 82 yo man with vascular dementia, admitted for acute encephalopathy 2/2 ischemic changes vs brain metastasis. #Encephalopathy, NOS -DDx: infection, mass, cva, metabolic -Acute decline since February -usually a&ox3 but since discharge from [facility] a&ox2 -Will admit to inpatient tele -PT had a prior CT showing a calvarium lytic lesion -Will order brain mri w/w/o contrast to rule out mass/bone metastasis and cva -cbc, cxr, ua, blood and urine cx ordered to rule out infection as a cause -cmp, mg, phosph ordered to rule electrolyte abnormality -glucose wnl -will consider PSA and CT chest abdomen pelvis if mri suggestive of mets -unsure if pt has ever had a colonoscopy #normocytic anemia -iron studies, b12, folate -fobt #vascular dementia -a&ox2 -restart home meds #htn restart home meds #hld restart home meds I, [], have evaluated this patient and agree with findings/plan as outlined by recording studio internship resident. Pertinent changes/additions are listed here.
[2018-04-07] MEDS ORDERED: Ondansetron ODT 4 MG TAB PO PRN (14:31)
[2018-04-07] MEDS ORDERED: Acetaminophen 325 MG TAB PO PRN (14:31)
[2018-04-07 15:41] VITALS: BMI 20.5
[2018-04-07] MEDS: Lactated Ringer's 1,000 ML IV SCH (16:56)
[2018-04-07] MEDS ORDERED: Milk Of Magnesia 30 ML UDCUP PO PRN (17:00)
[2018-04-07] MEDS ORDERED: Acetaminophen 500 MG TAB PO PRN (17:00)
[2018-04-07 22:39] LABS: Magnesium 2.2 mg/dL (1.6-2.6); Phosphorus 3.2 mg/dL (2.3-4.7)
[2018-04-07 22:41] LABS: Gamma GT (GGT) 136 U/L (12-64); Iron 32 ug/dL (65-175); Iron Binding Capacity, Total 138 mcg/dL (261-462)
[2018-04-07 22:46] LABS: Troponin I 0.026 ng/mL (< 0.028)
--- NOTE | 2018-04-07 23:49 | HP ---
HISTORY OF PRESENT ILLNESS: I have examined the patient. I have discussed the case with Dr. Shavon alcocer Conroy agree with assessment and plan. Briefly, Mr. Ignacio is an 82-year-old black male patient who was in the hospital approximately a huber h ago following a fall and treatment for urinary tract infection, which had since resolved. Over the ensuing months, he has continued, however, to lose weight and has had a gradual downhill courses for his physical activities. He used to be quite independent but now has been more homebound, SNF bound and bedbound over the last month. His family states that he is not his usual self as far his physic al activity is concerned. He has been admitted for further evaluation and workup. I also known his labs, he has a rather profound uremia consistent with a significant degree of volume depletion and is receiving IV fluids. PHYSICAL EXAMINATION: VITAL SIGNS: His blood pressure is currently 110/64. His room air O2 sat is 98%. Respirations are 14, pulse rate is 62. He is afebrile. GENERAL: This is a frail-appearing confused man in no acute distress. EAR AND THROAT: Mucous membranes are dry. NECK: Supple. CARDIAC: Heart rhythm is regular, no gallop or murmur noted. LUNGS: Breath sounds are diminished, but clear without rales or wheezes. No respiratory distress. ABDOMEN: Flat and soft, without guarding, rebound or rigidity. EXTREMITIES: No edema. NEUROLOGIC: No focal deficits are noted. Of interest on his previous admissions to the hospital, he was noted to have a possible calvarium lyt ic lesion consistent with hemangioma. We should probably further delineate this with an MRI or bone scan to rule out any type of metastatic disease. LABORATORY DATA: Shows now that his urinalysis is clear. He has negative leukocyte esterase, negati ve nitrites and no evidence of white blood cells as he had had previously. CBC: White count is 8500, hemoglobin 10.2, hematocrit 31.8 with an MCV of 95.2. He has a mild throm bocytosis with a platelet count of 429,000. Chemistries, his sodium is 138, potassium is 3.6, chlori de is 105, bicarbonate is 23, BUN is 92 with a creatinine of 1.65, which is a profound change from hi s previous SMA-7. His AST is now elevated to 61. His ALT is elevated to 57, alkaline phosphatase is elevated to 241. C-reactive protein is significantly elevated at 4.01. Troponin is 0.03. His chest x-ray shows no evidence of an acute cardiopulmonary process. Brain CT reveals no evidence of an acute intracranial hemorrhage or infarct. There are some chronic ischemic small vessel disease . Chronic stable findings. No mention of the aforementioned possibility hemangioma. ASSESSMENT AND PLAN: Profound uremia likely contributing to his acute mental changes. Given his gra dual downhill course over the last month with associated weight loss, I would be concerned about the possibility of an occult malignancy. I would suggest getting an MRI and/or bone scan to delineate fu rther for mentioned lytic lesion. We will consider getting a PSA statistically in a man this age cau ses of an occult malignancy would be prostate, colon, lung and pancreas. Consideration may also be g iven to a CT of the chest and abdomen. For now, he needs IV fluids to counteract his profound uremia .
[2018-04-08 00:16] LABS: Vitamin B12 Greater than 2000 pg/mL (211-911)
[2018-04-08 01:26] LABS: #Basophils 0.1 thou/uL (0.0-0.2); #Eosinphils 0.1 thou/uL (0.0-0.7); #Lymphocytes 0.9 thou/uL (1.20-3.40); #Monocytes 0.3 thou/uL (0.11-0.59); #Neutrophils 6.7 thou/uL (1.40-6.50); %Basophils 0.7 % (0.0-1.0); %Eosinophils 1.3 % (0.0-10.0); %Lymphocytes 10.9 % (21.0-51.0); %Monocytes 3.7 % (0.0-10.0); %Neutrophils 83.5 % (42.0-75.0); Hemoglobin 9.3 g/dL (14.0-18.0); Mean Corpuscular Hemoglobin 31.7 pg (27.0-31.0); Mean Corpuscular Volume 95.8 fL (78.0-98.0); Mean Platelet Volume 6.9 fL (7.4-10.4); Platelet Count 353 thou/uL (130-400); RBC Distribution Width 14.2 % (11.5-14.5); Red Blood Cell (RBC) Count 2.95 mill/uL (4.70-6.10)
[2018-04-08 01:43] LABS: Troponin I 0.037 ng/mL (< 0.028)
[2018-04-08 01:54] LABS: ALT (SGPT) 52 U/L (8-55); AST (SGOT) 64 U/L (5-34); Albumin 2.7 g/dL (3.4-4.8); Alkaline Phosphatase 225 U/L (40-150); Anion Gap 14 mmol/L (10-20); BUN (Urea Nitrogen) 78 mg/dL (8.4-25.7); Bilirubin, Total 1.2 mg/dL (0.2-1.2); Calc. Creatinine Clearance 40 mL/min (70-130); Calcium 8.3 mg/dL (7.8-10.44); Carbon Dioxide 20 mmol/L (23-31); Chloride 109 mmol/L (98-107); Estimated GFR-MDRD 68; Globulin 3.5 g/dL (2.4-3.5); Glucose 86 mg/dL (83-110); Potassium 3.4 mmol/L (3.5-5.1); Protein, Total 6.2 g/dL (5.8-8.1); Sodium 140 mmol/L (136-145)
[2018-04-08] MEDS: Lactated Ringer's 1,000 ML IV SCH ×2 (02:56→16:45)
[2018-04-08 07:56] LABS: Troponin I 0.022 ng/mL (< 0.028)
[2018-04-08] MEDS: Metoprolol Tartrate 25 MG TAB PO SCH (09:24)
--- NOTE | 2018-04-08 09:25 | PDOC.FM ---
- Subjective Subjective: No acute events overnight. A&Ox1. - Objective MAR Reviewed: Yes Vital Signs & Weight: Vital Signs (12 hours) Temp Pulse Resp BP Pulse Ox 04/08/18 07:20 98.2 F 92 20 94/55 L 95 04/08/18 03:59 98.0 F 93 16 100/56 L 98 04/08/18 00:00 98.0 F 77 16 103/57 L 93 L Weight Weight 63 kg I&O: 04/07/18 04/08/18 04/09/18 06:59 06:59 06:59 Intake Total 440 1200 Balance 440 1200 Result Diagrams: 04/08/18 01:09 04/08/18 01:09 <Talia Green - Last Filed: 04/08/18 10:31> - Objective Vital Signs & Weight: Vital Signs (12 hours) Temp Pulse Resp BP Pulse Ox 04/08/18 09:30 98.2 F 92 20 95 04/08/18 09:27 92 04/08/18 07:20 98.2 F 92 20 94/55 L 95 Weight Admit Weight 62.993 kg Weight 62.993 kg I&O: 04/07/18 04/08/18 04/09/18 06:59 06:59 06:59 Intake Total 440 1200 Balance 440 1200 Result Diagrams: 04/08/18 01:09 04/08/18 01:09 <Sophia Basilio - Last Filed: 04/08/18 16:38> Phys Exam - Physical Examination Constitutional: NAD HEENT: PERRLA, moist MMs Respiratory: no wheezing, no rales, clear to auscultation bilateral Cardiovascular: RRR, no significant murmur Gastrointestinal: soft, non-tender Deviation from normal: a&ox1 Skin: no rash <Talia Green - Last Filed: 04/08/18 10:31> Dx/Plan (1) Encephalopathy Code(s): G93.40 - ENCEPHALOPATHY, UNSPECIFIED Status: Acute (2) MANUEL (acute kidney injury) Code(s): N17.9 - ACUTE KIDNEY FAILURE, UNSPECIFIED Status: Acute (3) Dementia Code(s): F03.90 - UNSPECIFIED DEMENTIA WITHOUT BEHAVIORAL DISTURBANCE Status: Acute (4) BPH (benign prostatic hyperplasia) Code(s): N40.0 - BENIGN PROSTATIC HYPERPLASIA WITHOUT LOWER URINRY TRACT SYMP Status: Chronic (5) HLD (hyperlipidemia) Code(s): E78.5 - HYPERLIPIDEMIA, UNSPECIFIED Status: Chronic (6) HTN (hypertension) Code(s): I10 - ESSENTIAL (PRIMARY) HYPERTENSION Status: Chronic (7) History of cardiac arrhythmia Code(s): Z86.79 - PERSONAL HISTORY OF OTHER DISEASES OF THE CIRCULATORY SYSTEM Status: Chronic - Plan Plan: 82 yo man with vascular dementia, admitted for acute encephalopathy 2/2 ischemic changes vs brain metastasis. #Encephalopathy, NOS -DDx: worsening vascular dementia, infection, mass, mets, cva, metabolic -Acute decline since February -usually a&ox3 but since discharge from [place] a&ox2 -a&0x1 today -PT had a prior CT showing a calvarium lytic lesion -Will order brain mri w/w/o contrast to rule out mass/bone metastasis and cva -cbc, cxr, ua, blood and urine cx ordered to rule out infection as a cause -cmp, mg, phosph ordered to rule electrolyte abnormality -glucose wnl -will consider PSA and CT chest abdomen pelvis if mri suggestive of mets -unsure if pt has ever had a colonoscopy -after mri results, will discuss with [facility] goals of care. -will consult palliative care -PT/OT/Speech consulted -family yesterday did not want hospice but agreed to talk more with palliative care. ACD -continue to monitor Folate deficiency -banana bag -folate daily #vascular dementia -a&ox1 -mri pending #htn restart home meds #hld restart home meds <Talia Green - Last Filed: 04/08/18 10:31> Attending Addendum - Attending Addendum Date/Time: 04/08/18 5033 I personally evaluated the patient and discussed the management with Dr. Damian I agree with the History, Examination, Assessment and Plan documented above with any addition or exceptions noted below. Failure to Thrive- workup thus far negative. Awaiting MRI results. If negative will discuss with family about possible hospice evaluation. <Sophia Basilio - Last Filed: 04/08/18 16:38>
[2018-04-08] MEDS: Amlodipine 10 MG TAB PO SCH (09:27)
[2018-04-08] MEDS: Enoxaparin Sodium 40 MG/0.4 ML SYRINGE SC SCH (09:28)
[2018-04-08] MEDS: Folic Acid 1 MG TAB PO SCH (09:28)
[2018-04-08] MEDS: Atorvastatin Calcium 40 MG TAB PO SCH (09:28)
[2018-04-08] MEDS: Hydrochlorothiazide 25 MG TAB PO SCH (09:29)
[2018-04-08] MEDS: Tamsulosin HCl 0.4 MG CAP PO SCH (09:30)
[2018-04-08] MEDS: Multivitamins, Adult 10 ML, Folic Acid 1 MG, Thiamine HCl 100 MG in Dextrose 5 %-0.45 %... IV SCH (12:10)
--- NOTE | 2018-04-08 14:24 | PQF ---
CLINICAL DOCUMENTATION IMPROVEMENT CLARIFICATION FORM: ICD-10 Updated PLEASE DO AN ADDENDUM TO THE PROGRESS NOTE WITH ANY DOCUMENTATION UPDATES OR ADDITIONS AND CARRY THROUGH TO DC SUMMARY. THANK YOU. Date: 04/08 ATTN: DR. ANISH GONZALEZ/ DR. Mitchell MATHEW Please exercise your independent, professional judgment in responding to the clarification form. Clinical indicators are provided on the bottom of this form for your review. Please check appropriate box(s): [ ] Protein Calorie Malnutrition: [ ] Mild [ ] Moderate [x ] Severe [ ] Other Malnutrition (please specify) ____severe malnutrition in chronic illness [ ] Underweight without malnutrition [ ] Cachexia [ ] Other diagnosis [ ] Unable to determine CLINICAL INDICATORS - SIGNS / SYMPTOMS / LABS BMI: 20.5 ER PHYSICIAN DOCUMENTATION 04/07: PATIENT PRESENTS FOR FTT. FAMILY STATES PATIENT HASN'T WALKED OR EATEN FOR ONE WEEK. H&P DOCUMENTATION 04/07: PER GRANDDAUGHTER HAS HAD DECREASED APPETITE, WITH MINIMAL DESIRE TO EAT. DAUGHTER STATES HE DOESN'T WANT TO EAT AND HAS APPARENTLY HAD A 22 LB WEIGHT LOSS IN THE PAST MONTH. HOME THERAPY CLINICIAN DOCUMENTATION 04/08: PT WAS DISORIENTED BUT ABLE TO REPORT THAT HE DOES NOT EAT MUCH. PER MD REPORT OF LAST ADMISSION IN FEBRUARY, PT WEIGHED 168 LBS WHICH IS A 30 LB WEIGHT LOSS IN APPROX 1 MONTH. 17.8% WEIGHT LOSS IN 1 MONTH; 0-25% INTAKE OF MEALS SINCE ADMIT HOME THERAPY CLINICIAN PHYSICAL FINDINGS: STAGE 2 PRESSURE ULCER TO COCCYX; OBSERVED MUSCLE WASTING ALONG TEMPLES & CHEEKS; BUCCAL FAT WASTING RISK FACTORS: CHANGED IN MENTAL STATUS DECREASED APPETITE WEIGHT LOSS TREATMENT: HOME THERAPY CLINICIAN CONSULT NUTRITIONAL SUPPLEMENT RECOMMENDED BY HOME THERAPY CLINICIAN Moderate Malnutrition (in acute illness) Energy Intake: <75% of estimated energy requirement for > 7 days Weight Loss: 1-2%/1 week; 5%/ 1 month; 7.5%/3 months Other: mild body fat loss; mild muscle mass loss; mild fluid accumulation; Severe Malnutrition (in acute illness) Energy Intake: < 50% of estimated energy requirement for > 5 days Weight Loss: >1-2%/1 week; >5%/1 month; >7.5%/3 months Other: moderate body fat loss; moderate muscle mass loss; moderate- severe fluid accumulation; measurably reduced software engineer backend strength Moderate Malnutrition (in chronic illness) Energy Intake: <75% of estimated energy requirement for >1 month Weight Loss: 5%/1 month; 7.5%/3 months; 10%/6 months; 20%/1 year Other: mild body fat loss; mild muscle mass loss; mild fluid accumulation Severe Malnutrition (in chronic illness) Energy Intake: <75% of estimated energy requirement for >1 month Weight Loss: >5%/1 month; >7.5%/3 months; >10%/6 months; >20%/1 year Other: severe body fat loss; severe muscle mass loss; severe fluid accumulation; measurably reduced software engineer backend strength THANK YOU! Shanta (This form is maintained as a part of the permanent medical record) 2014 [employer]. All Rights Reserved Shanta Putnam RN, BSN [email or web address] Office: [phone] [facility]
[2018-04-09] MEDS: Lactated Ringer's 1,000 ML IV SCH ×3 (02:26→16:39)
[2018-04-09 05:02] LABS: #Eosinphils 0.2 thou/uL (0.0-0.7); #Monocytes 0.5 thou/uL (0.11-0.59); #Neutrophils 6.7 thou/uL (1.40-6.50); %Basophils 0.2 % (0.0-1.0); %Eosinophils 1.8 % (0.0-10.0); %Lymphocytes 11.7 % (21.0-51.0); %Monocytes 5.5 % (0.0-10.0); %Neutrophils 80.7 % (42.0-75.0); Hemoglobin 9.7 g/dL (14.0-18.0); Mean Corpuscular HGB CONC 31.9 g/dL (32.0-36.0); Mean Corpuscular Hemoglobin 30.2 pg (27.0-31.0); Mean Corpuscular Volume 94.7 fL (78.0-98.0); Mean Platelet Volume 6.8 fL (7.4-10.4); Platelet Count 351 thou/uL (130-400); RBC Distribution Width 14.6 % (11.5-14.5); White Blood Cell (WBC) Count 8.2 thou/uL (4.8-10.8)
[2018-04-09 05:18] LABS: ALT (SGPT) 45 U/L (8-55); AST (SGOT) 49 U/L (5-34); Albumin 2.5 g/dL (3.4-4.8); Alkaline Phosphatase 241 U/L (40-150); Anion Gap 14 mmol/L (10-20); BUN (Urea Nitrogen) 56 mg/dL (8.4-25.7); Bilirubin, Total 1.4 mg/dL (0.2-1.2); Calc. Creatinine Clearance 49 mL/min (70-130); Carbon Dioxide 19 mmol/L (23-31); Chloride 109 mmol/L (98-107); Estimated GFR-MDRD 86; Globulin 3.3 g/dL (2.4-3.5); Glucose 96 mg/dL (83-110); Potassium 3.5 mmol/L (3.5-5.1); Protein, Total 5.8 g/dL (5.8-8.1); Sodium 138 mmol/L (136-145)
--- NOTE | 2018-04-09 06:58 | PDOC.FM ---
- Subjective Subjective: A&Ox1. Denies pain. Resting in bed. - Objective MAR Reviewed: Yes Vital Signs & Weight: Vital Signs (12 hours) Temp Pulse Resp BP Pulse Ox 04/08/18 20:00 98.0 F 74 20 120/70 97 Weight Admit Weight 62.993 kg Weight 62.993 kg I&O: 04/07/18 04/08/18 04/09/18 06:59 06:59 06:59 Intake Total 440 2900 Balance 440 2900 Result Diagrams: 04/09/18 04:55 04/09/18 04:55 <Talia Green - Last Filed: 04/09/18 13:29> - Objective Vital Signs & Weight: Vital Signs (12 hours) Temp Pulse Pulse Resp BP BP Pulse Ox 04/09/18 10:33 77 04/09/18 10:23 80 111/70 04/09/18 08:00 98.2 F 77 16 92 L 04/09/18 07:00 98.2 F 77 16 113/69 92 L Pulse Ox 04/09/18 10:33 04/09/18 10:23 95 04/09/18 08:00 04/09/18 07:00 Weight Admit Weight 62.993 kg Weight 62.993 kg I&O: 04/08/18 04/09/18 04/10/18 06:59 06:59 06:59 Intake Total 440 2900 540 Balance 440 2900 540 Result Diagrams: 04/09/18 04:55 04/09/18 04:55 <Sophia Basilio - Last Filed: 04/09/18 13:35> Phys Exam - Physical Examination Constitutional: NAD Respiratory: no wheezing, no rales, clear to auscultation bilateral Cardiovascular: RRR, no significant murmur Gastrointestinal: soft, non-tender, no distention, positive bowel sounds Musculoskeletal: no edema Skin: no rash <Talia Green - Last Filed: 04/09/18 13:29> Dx/Plan (1) Encephalopathy Code(s): G93.40 - ENCEPHALOPATHY, UNSPECIFIED Status: Acute (2) MANUEL (acute kidney injury) Code(s): N17.9 - ACUTE KIDNEY FAILURE, UNSPECIFIED Status: Acute (3) Dementia Code(s): F03.90 - UNSPECIFIED DEMENTIA WITHOUT BEHAVIORAL DISTURBANCE Status: Acute (4) BPH (benign prostatic hyperplasia) Code(s): N40.0 - BENIGN PROSTATIC HYPERPLASIA WITHOUT LOWER URINRY TRACT SYMP Status: Chronic (5) HLD (hyperlipidemia) Code(s): E78.5 - HYPERLIPIDEMIA, UNSPECIFIED Status: Chronic (6) HTN (hypertension) Code(s): I10 - ESSENTIAL (PRIMARY) HYPERTENSION Status: Chronic (7) History of cardiac arrhythmia Code(s): Z86.79 - PERSONAL HISTORY OF OTHER DISEASES OF THE CIRCULATORY SYSTEM Status: Chronic - Plan Plan: 82 yo man with vascular dementia, admitted for acute encephalopathy 2/2 ischemic changes vs brain metastasis. #Encephalopathy, NOS -DDx: worsening vascular dementia, infection, mass, mets, cva, metabolic -Acute decline since February -usually a&ox3 but since discharge from [place] a&ox2 -a&0x1 today -PT had a prior CT showing a calvarium lytic lesion -MRI shows chronic changes -Pending abdominal US d/t elevated liver enzymes, alk phosph, and GGT -per palliative, pt leaning towards hospice after discussion today; will call family after abdominal US ACD -continue to monitor Folate deficiency -banana bag -folate daily #vascular dementia -a&ox1 -mri with chronic vascular changes #htn restart home meds #hld restart home meds <Talia Green - Last Filed: 04/09/18 13:29> Attending Addendum - Attending Addendum Date/Time: 04/09/18 1033 I personally evaluated the patient and discussed the management with Dr. Damian I agree with the History, Examination, Assessment and Plan documented above with any addition or exceptions noted below. Worsening vascular dementia causing failure to thrive- metabolic and malignant workup negative thus far. He does have mildly elevated liver function so will consider abdominal u/s of liver. Also will consult palliative care and have family discussion about goals of treatment. Severe protein calorie malnutrition- ensure and megace. Will consider addition of mirtazipine for possible depression and appetite stimulation. <Sophia Basilio - Last Filed: 04/09/18 13:35>
--- NOTE | 2018-04-09 09:28 | RAD ---
KUB: Indication: Elevated liver enzymes, concern for metastatic disease. FINDINGS: Bowel gas pattern is nonobstructive. There is scattered degenerative change of the thoracolumbar spin e and visualized pelvis. No suspicious calcification is evident. Mild amount of retained stool is see n in the rectum. IMPRESSION: No acute abnormality. If there is concern for metastatic disease, CT of the chest, abdomen, and pelvi s with IV contrast is recommended for further evaluation. POS: [facility]
[2018-04-09] MEDS: Enoxaparin Sodium 40 MG/0.4 ML SYRINGE SC SCH (10:22)
[2018-04-09] MEDS: Folic Acid 1 MG TAB PO SCH (10:29)
[2018-04-09] MEDS: Tamsulosin HCl 0.4 MG CAP PO SCH (10:29)
[2018-04-09] MEDS: Megestrol Acetate 800 MG/20 ML UDCUP PO SCH (10:29)
[2018-04-09] MEDS: Hydrochlorothiazide 25 MG TAB PO SCH (10:31)
[2018-04-09] MEDS: Atorvastatin Calcium 40 MG TAB PO SCH (10:32)
[2018-04-09] MEDS: Metoprolol Tartrate 25 MG TAB PO SCH (10:32)
[2018-04-09] MEDS: Amlodipine 10 MG TAB PO SCH (10:33)
--- NOTE | 2018-04-09 11:35 | MRI ---
MRI BRAIN WITH AND WITHOUT IV CONTRAST: Date: 04-09-18 History: Altered mental status. Lytic lesion in right frontal bone on prior CT exam. Concern for bone metastatic lesion. FINDINGS: There is patchy confluent increased FLAIR and T2 weighted signal intensity in the periventricular as well as involving the subcortical white matter, which is nonspecific but most likely attributable to severe chronic small vessel ischemic changes. There is a focal areas of decreased T1 and FLAIR with c orresponding increased T2 weighted signal intensity seen within the left anterior frontal subcortical white matter likely related to a cavitated lacunar infarction. In addition, there is also suggestion of small cavitated lacunar infarction involving the left aspect of the dinh. There is no evidence of an acute infarction. There are punctate areas of decreased signal intensity o n the gradient echo images in a subcortical location which may be related to amyloid angiopathy. There is prominent cerebral and cerebellar volume loss. The ventricular system is normal in size, sha pe, and position for the degree of sulcal atrophy. The septum pellucidum and third ventricle are on t he midline. There is no abnormal enhancement seen in the right frontal calvarium, but there is what appears to re present a arachnoid granulation which would correspond to the abnormality on the CT scan exams on 03-19 as well as 03-02-18. No abnormal areas of enhancement are seen. Appropriate flow voids are demonstrated at the base of the brain. There is mucosal thickening seen in a few left sided ethmoidal air cells with minimal mucosal thicken ing in the right maxillary antrum. Cachil Dehe lenses are not visualized. Visualized skull base has a normal MRI appearance. IMPRESSION: 1. No acute intracranial abnormalities demonstrated. 2. Severe chronic small vessel ischemic changes. 3. Cerebral and cerebellar volume loss. 4. Findings suggestive of amyloid angiopathy. 5. 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 This finding was reviewed with Dr. Cox who is in agreement with this assess ment. POS: [facility]
[2018-04-09] MEDS: Multivitamins, Adult 10 ML, Folic Acid 1 MG, Thiamine HCl 100 MG in Dextrose 5 %-0.45 %... IV SCH (12:18)
--- NOTE | 2018-04-09 21:05 | ULT ---
ULTRASOUND ABDOMEN 04/09/18 HISTORY: Elevated liver enzymes. Concern for liver lesion. COMPARISON: None. TECHNIQUE: Real time crook scale, color doppler and spectral analysis of the abdomen is performed. The pancreas and IVC not well seen. The aorta is unremarkable. The liver is enlarged measuring 20 cm. There are numerous masses which are peripherally hypoechoic and centrally hyperechoic. Gallbladder wall thickness is normal. Negative sonographic Donovan's sign. Likely sludge versus less l ikely a mass within the gallbladder. This patient is unable to roll to their side. Common bile duct is normal. Pancreas is not seen. There appears to be a mass in the right kidney measuring up to 3 cm. Also cysts throughout the left kidney. Spleen is not well seen. IMPRESSION: 1. Numerous hepatic masses concerning for metastatic disease. 2. Right renal mass concerning for carcinoma. A dedicated MRI or CT of the abdomen and pelvis is recommended. POS: [facility]
[2018-04-10 04:55] LABS: #Eosinphils 0.2 thou/uL (0.0-0.7); #Lymphocytes 0.7 thou/uL (1.20-3.40); #Monocytes 0.2 thou/uL (0.11-0.59); #Neutrophils 5.5 thou/uL (1.40-6.50); %Basophils 0.3 % (0.0-1.0); %Eosinophils 2.4 % (0.0-10.0); %Lymphocytes 11.1 % (21.0-51.0); %Monocytes 3.4 % (0.0-10.0); %Neutrophils 82.7 % (42.0-75.0); Hemoglobin 9.7 g/dL (14.0-18.0); Mean Corpuscular HGB CONC 32.8 g/dL (32.0-36.0); Mean Corpuscular Hemoglobin 31.2 pg (27.0-31.0); Mean Corpuscular Volume 94.8 fL (78.0-98.0); Mean Platelet Volume 6.6 fL (7.4-10.4); Platelet Count 331 thou/uL (130-400); RBC Distribution Width 14.8 % (11.5-14.5); Red Blood Cell (RBC) Count 3.11 mill/uL (4.70-6.10); White Blood Cell (WBC) Count 6.6 thou/uL (4.8-10.8)
[2018-04-10 05:12] LABS: ALT (SGPT) 38 U/L (8-55); AST (SGOT) 37 U/L (5-34); Albumin 2.3 g/dL (3.4-4.8); Alkaline Phosphatase 220 U/L (40-150); Anion Gap 11 mmol/L (10-20); BUN (Urea Nitrogen) 37 mg/dL (8.4-25.7); Bilirubin, Total 1.3 mg/dL (0.2-1.2); Calc. Creatinine Clearance 60 mL/min (70-130); Calcium 7.9 mg/dL (7.8-10.44); Carbon Dioxide 23 mmol/L (23-31); Chloride 110 mmol/L (98-107); Estimated GFR-MDRD Greater than 90; Globulin 3.1 g/dL (2.4-3.5); Glucose 88 mg/dL (83-110); Potassium 3.3 mmol/L (3.5-5.1); Protein, Total 5.4 g/dL (5.8-8.1); Sodium 141 mmol/L (136-145)
--- NOTE | 2018-04-10 06:56 | PDOC.FM ---
- Subjective Subjective: A&0 X 2 this am. Answering questions. Family signed paperwork for hospice. Pt US was concerning for metastatic dz. Will discuss results with family as I know they were wanting answers. - Objective MAR Reviewed: Yes Vital Signs & Weight: Vital Signs (12 hours) Temp Pulse Resp BP Pulse Ox 04/09/18 20:00 97.3 F L 64 16 119/66 94 L Weight Admit Weight 62.993 kg Weight 62.993 kg I&O: 04/08/18 04/09/18 04/10/18 06:59 06:59 06:59 Intake Total 440 2900 1740 Balance 440 2900 1740 Result Diagrams: 04/10/18 04:39 04/10/18 04:39 <Talia Green - Last Filed: 04/10/18 09:00> - Objective Vital Signs & Weight: Vital Signs (12 hours) Temp Pulse Resp BP Pulse Ox 04/10/18 06:59 98.1 F 77 20 120/67 94 L Weight Admit Weight 62.993 kg Weight 62.993 kg I&O: 04/09/18 04/10/18 04/11/18 06:59 06:59 06:59 Intake Total 2900 1740 Balance 2900 1740 Result Diagrams: 04/10/18 04:39 04/10/18 04:39 <David Mckenzie - Last Filed: 04/10/18 11:22> Phys Exam - Physical Examination Constitutional: NAD HEENT: PERRLA, moist MMs Respiratory: no wheezing, no rales, clear to auscultation bilateral Cardiovascular: RRR, no significant murmur Gastrointestinal: soft, non-tender, no distention Musculoskeletal: no edema Psychiatric: normal affect, A&O x 3 Skin: no rash <Talia Green - Last Filed: 04/10/18 09:00> Dx/Plan (1) Encephalopathy Code(s): G93.40 - ENCEPHALOPATHY, UNSPECIFIED Status: Acute (2) MANUEL (acute kidney injury) Code(s): N17.9 - ACUTE KIDNEY FAILURE, UNSPECIFIED Status: Acute (3) Dementia Code(s): F03.90 - UNSPECIFIED DEMENTIA WITHOUT BEHAVIORAL DISTURBANCE Status: Acute (4) BPH (benign prostatic hyperplasia) Code(s): N40.0 - BENIGN PROSTATIC HYPERPLASIA WITHOUT LOWER URINRY TRACT SYMP Status: Chronic (5) HLD (hyperlipidemia) Code(s): E78.5 - HYPERLIPIDEMIA, UNSPECIFIED Status: Chronic (6) HTN (hypertension) Code(s): I10 - ESSENTIAL (PRIMARY) HYPERTENSION Status: Chronic (7) History of cardiac arrhythmia Code(s): Z86.79 - PERSONAL HISTORY OF OTHER DISEASES OF THE CIRCULATORY SYSTEM Status: Chronic - Plan Plan: 82 yo man with vascular dementia, admitted for acute encephalopathy 2/2 ischemic changes vs brain metastasis. #Encephalopathy, NOS -DDx: worsening vascular dementia and mestatic dz with suspected RCC of the right kidney -Acute decline since February -usually a&ox3 but since discharge from [place] a&ox2 -PT had a prior CT showing a calvarium lytic lesion -MRI shows chronic changes -Abdominal US showed concerning masses in liver for metastatic disease and a mass on the right kidney -per palliative family signed paperwork for hospice; will call family today ACD -continue to monitor Folate deficiency -folate daily #vascular dementia -a&ox1 -mri with chronic vascular changes #htn consider dc #hld consider dc <Talia Green - Last Filed: 04/10/18 09:00> Attending Addendum - Attending Addendum Date/Time: 04/10/18 1121 I personally evaluated the patient and discussed the management with Dr. Tia Damian. I agree with the History, Examination, Assessment and Plan documented above with any addition or exceptions noted below. Patient stable and resting comfortably. 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 Continue current management. Will update family but current plan is for discharge home to hospice care today unless they opt for further workup. <David Mckenzie - Last Filed: 04/10/18 11:22>
[2018-04-10 07:02] VITALS: BP 120/67; TEMP 98.1
[2018-04-10] MEDS: Lactated Ringer's 1,000 ML IV SCH (08:36)
[2018-04-10] MEDS: Tamsulosin HCl 0.4 MG CAP PO SCH (08:43)
[2018-04-10] MEDS: Metoprolol Tartrate 25 MG TAB PO SCH (08:43)
[2018-04-10] MEDS: Atorvastatin Calcium 40 MG TAB PO SCH (08:43)
[2018-04-10] MEDS: Folic Acid 1 MG TAB PO SCH (08:43)
[2018-04-10] MEDS: Enoxaparin Sodium 40 MG/0.4 ML SYRINGE SC SCH ×2 (08:44→08:52)
[2018-04-10] MEDS: Megestrol Acetate 800 MG/20 ML UDCUP PO SCH ×2 (08:50→08:52)
[2018-04-10] MEDS ORDERED: Hydrochlorothiazide 25 MG TAB PO SCH (09:00)
[2018-04-10] MEDS: Multivitamins, Adult 10 ML, Folic Acid 1 MG, Thiamine HCl 100 MG in Dextrose 5 %-0.45 %... IV SCH (09:44)
--- NOTE | 2018-04-11 17:30 | EKG ---
Test Reason : NOT EATING Blood Pressure : / mmHG Vent. Rate : 091 BPM Atrial Rate : 091 BPM P-R Int : 184 ms QRS Dur : 116 ms QT Int : 414 ms P-R-T Axes : 093 -87 031 degrees QTc Int : 509 ms Sinus rhythm with Premature atrial complexes with Abberant conduction Left axis deviation Pulmonary disease pattern Right bundle branch block Inverted I,II,III, v2, aVR Septal infarct , age undetermined No STEMI Abnormal ECG Confirmed by MACY Ko, SADIE ([id number]), visual effects editor KAVITA FELIZ ([id number]) on 04/11/2018 5:30:08 PM Referred By: Confirmed By:SADIE CAVAZOS M.D.
== END 2018-04-10 17:04 | disposition hospice, home (50) | DRG 682 ==
LOC: ERS 10:10 → ONC 15:26
PROVIDERS: ADMIT Student in an Organized Health Care Education/Training Program; ATTEND Student in an Organized Health Care Education/Training Program
DX: N17.9 Acute kidney failure, unspecified (principal); G93.40 Encephalopathy, unspecified; E43 Unspecified severe protein-calorie malnutrition; F03.90 Unspecified dementia, unspecified severity, without behavioral disturbance, psychotic disturbance, mood disturbance, and anxiety; N40.0 Benign prostatic hyperplasia without lower urinary tract symptoms; E78.5 Hyperlipidemia, unspecified; I10 Essential (primary) hypertension; F01.50 Vascular dementia, unspecified severity, without behavioral disturbance, psychotic disturbance, mood disturbance, and anxiety; R62.7 Adult failure to thrive; D64.9 Anemia, unspecified; Z68.20 Body mass index [BMI] 20.0-20.9, adult; L89.152 Pressure ulcer of sacral region, stage 2; R16.0 Hepatomegaly, not elsewhere classified; N28.89 Other specified disorders of kidney and ureter
CPT/HCPCS: 36415; 51701; 70450; 70553; 71045; 74018; 76700; 80053; 81003; 82274; 82553; 82607; 82728; 82746; 82977; 83540; 83550; 83605; 83690; 83735; 84100; 84145; 84484; 85025; 86140; 87086; 93005; 96360; A4216; G8978-GP-CM; G8979-GP-CK; G8987-GO-CL; G8988-GO-CJ; G8996-GN-CJ; G8997-GN-CJ; J1650; J3411; J7042